=== PATIENT | female | born 1965 | race Caucasian/White ===

== ENCOUNTER 2019-08-04 14:20 | Outpatient (CLI) | payer BC, SELFPAY ==
--- NOTE | 2019-08-04 14:32 | US_ITS ---
WS: [id number] Abdomen ultrasound, 08/04/2019 Clinical Data: juandice Comparison: CT chest abdomen and pelvis, 05/09/2017. Findings: The pancreas shows no cyst, pseudocyst or evidence of pancreatitis although it is not well seen.. The liver shows fatty infiltration. There is a echogenic region in the lobe of the liver measuring 3. 77 x 4.14 x 4.42 cm. The border is not well-defined and seems to blend with the adjacent liver. The gallbladder has been removed. The right kidney is 5.24 x 5.84 x 11.91 cm. No cysts, masses or hydronephrosis is seen. The left kidney is 4.28 x 5.07 x 10.87 cm. No cysts, masses or hydronephrosis is seen. The abdominal aorta is not dilated and the inferior vena cava has normal flow. No vascular abnormalit ies are seen. The spleen measures 5.77 x 7.08 x 10.53 cm and there are no intrasplenic masses are capsular abnormal ities. US/US abdomen complete* [id number] Impression: 1. There is an echogenic region in the right lobe of the liver which correspond s to the low-density lesion seen on the CT chest abdomen pelvis [address] abdomen and pelvis with IV contrast. This lesion could represent a metas tatic lesion. 2. Absent gallbladder.
[2019-08-04 16:07] LABS: Basophils # 0.1 10^3/uL (0.0-0.1); Basophils % 0.6 %; Eosinophils # 0.3 10^3/uL (0.0-0.8); Eosinophils % 2.9 %; Hematocrit 39.1 % (37.0-47.0); Hemoglobin 12.5 g/dL (11.5-15.3); Lymphocytes # 1.4 10^3/uL (0.8-4.8); Lymphocytes % 15.8 %; Mean Corpuscular Hemoglobin 25.7 pg (28.0-34.0); Mean Corpuscular Volume 80.3 fL (81-99); Monocytes # 0.5 10^3/uL (0.2-0.9); Monocytes % 5.4 %; Neutrophils # 6.3 10^3/uL (1.8-7.7); Neutrophils % 74.1 %; Nucleated Red Blood Cells % 0 %; Platelet Count 346 10^3/cmm (130-400); Red Blood Count 4.87 10^6/uL (4.1-5.3); Red Cell Distribution Width 17.9 % (12.1-15.1); White Blood Count 8.6 10^3/uL (4.0-10.0)
[2019-08-04 16:16] LABS: INR 0.93 (0.8-1.2)
[2019-08-04 16:30] LABS: Alanine Aminotransferase 369 U/L (0-33); Albumin Level 3.5 g/dL (3.5-5.2); Alkaline Phosphatase 667 IU/L (35-105); Anion Gap 17.7 (5-19); Aspartate Amino Transferase 263 U/L (0-32); Blood Urea Nitrogen 10 mg/dL (6-20); Calcium 10.2 mg/dL (8.5-10.5); Carbon Dioxide 25 mmol/L (22-29); Chloride 97 mmol/L (98-107); Chol HDL Ratio 24.75 mg/dL (0.0-4.40); Cholesterol 495 mg/dL (0-200); Glomerular Filtration Rate 128.6 mL/min (90-130); Glucose 138 mg/dL (65-115); HDL Cholesterol 20 mg/dL (60-100); LDL Cholesterol Calculated 434 mg/dL (50-129); Potassium 3.7 mmol/L (3.5-5.1); Sodium 136 mmol/L (136-145); Thyroid Stimulating Hormone 13.02 uIU/mL (0.27-4.20); Total Protein 8.5 g/dL (6.6-8.7); Triglycerides 207 mg/dL (0-150)
[2019-08-04 22:10] LABS: Tumor Marker Alpha Fetoprotein 5.1 ng/mL (0-8.3)
== END 2019-08-04 14:21 | disposition home or self-care (01) ==
LOC: RAD 14:26
PROVIDERS: Family Provider Nurse Practitioner Family; PCP Nurse Practitioner Family; Visit Provider Nurse Practitioner Family
DX: R17 Unspecified jaundice (principal)
CPT/HCPCS: 76700; 80053; 80061; 82105; 84443; 85025; 85610

== ENCOUNTER → 2019-08-05 11:22 | Outpatient (BNVA) | payer BC, SELFPAY | PROVIDERS: Family Provider Nurse Practitioner Family; PCP Nurse Practitioner Family; Visit Provider Nurse Practitioner Family | DX: R17 Unspecified jaundice (principal); E03.9 Hypothyroidism, unspecified; Z85.05 Personal history of malignant neoplasm of liver | CPT/HCPCS: 36415; 81001; 82607; 82728; 83540; 83550; 86803 ==

== ENCOUNTER 2019-08-06 12:46 | Emergency (ER) | payer BC, SELFPAY ==
[2019-08-06 12:52] VITALS: BP 164/112; PULSE 93; RESP 16; TEMP 36.8; O2SAT 97; BMI 31.8
--- NOTE | 2019-08-06 13:16 | CT_ITS ---
WS: [id number] CT ABDOMEN AND PELVIS WITH CONTRAST HISTORY: elevate LFTs, jaundice; hx liver/colon CA TECHNIQUE: Imaging performed of the abdomen and pelvis with IV contrast. Single phase imaging of the abdomen. Coronal and sagittal reformats are submitted. All CT scans at [facility] use at least one of these dose optimization techniques: automated exposure control; mA and/or kV adjustment per patient size (includes targeted exams where dose is matched to clinical indication); or iterativ e reconstruction. IV CONTRAST: Omnipaque 300; 95 mL IV. Oral contrast: No DLP: 1226.04 mGy.cm COMPARISON: 05/09/2017 and 08/04/2019 Lower thorax: Lung bases are clear. Heart is normal size. Small hiatal hernia. Liver/biliary system: Intrahepatic bile duct dilatation. Common bile duct measures 11 mm at the pancr eatic head. Mass with predominantly decreased density in the inferior RIGHT lobe of liver with variab le echogenicity present in this mass measures 4.5 x by 4.1 cm and is causing bulging of the contour o f the liver. There is fluid surrounding the mass and extending along the capsule of the liver and sof t tissue thickening. There is an additional hypoechoic area measuring 8 mm in the medial RIGHT lobe o f the liver. Gallbladder: Prior cholecystectomy. Pancreas: Pancreas is normal size. There is a new soft tissue mass measuring 2.6 x 1.6 cm posterior t o the pancreatic head and anterior to the IVC. Spleen: Normal. Adrenal glands: Normal. Right kidney: Normal. Left kidney: Normal. Aorta: Normal. New lymph node anterior to the IVC is rounded measuring 1.0 cm. Free fluid: None. GI tract: Row of anastomotic sutures in the RIGHT abdomen. At the anastomotic sutures there is fecal localization of the intraluminal contents. I suspect is probably at least a partial obstruction near the anastomotic suture site. Additional rows sutures at the rectum. Abdominal wall: Unremarkable abdominal wall. No hernia. Pelvis: No free fluid. RIGHT obturator lymph node was not present in 2016 and measures 12 mm in short axis diameter. There are additional lymph nodes posterior to the RIGHT iliac vein. Bones: No osteoblastic or osteolytic disease. Notified LUCIE Askew at 08/06/2019 2:[address]/CT abdomen pelvis w con* [id number] IMPRESSION: 1. Low-attenuation but variable density mass in the inferior RIGHT lobe of the liver measures 4.5 x 4.1 cm. Mass extends through the liver capsule with adjac ent perihepatic fluid. This may be metastatic lesion or bleeding from a recent ly biopsied site or abscess. 2. New intrahepatic and extrahepatic bile duct dilatation. 3. New metastatic deposits and/or lymph nodes. Largest deposit posterior to th e pancreatic head measures 2.6 x 1.6 cm. Additional new aortocaval and RIGHT p elvic lymph nodes. 4. Surgical anastomotic site in the RIGHT abdomen. Partial obstruction suspect ed at the anastomotic site. 5. Prior cholecystectomy.
--- NOTE | 2019-08-06 13:17 | ED_ITS ---
Documented by User: LUCIE Askew 08/06/19 16:05 HPI - Abdominal Pain General: Chief Complaint: Abdominal Pain Stated Complaint: GERALD Time Seen by Provider: 08/06/19 13:02 Source: patient Mode of arrival: ambulatory Limitations: no limitations History of Present Illness: HPI narrative: Patient is a 54-year-old female who presents to ED today for complaints of jaundice over the past few days. Patient has a history of colon cancer with metastasis to her liver that was diagnosed in 2018. She was subsequently treated at the [facility] in [place] and then care transferred to a surgeon and oncologist in [place]. Patient states she has had several colon resections/ileostomy/reversal and had a mass on her liver removed. Patient was seen by her PCP 2 days ago and had outpatient labs and an ultrasound performed. Ultrasound of her abdomen showed a nodule on her liver- radiologist recommended CT with contrast for further evaluation. Patient tells me over the past couple of days she has noticed yellowing skin, yellowing eyes, dark urine, pale stools, and itchy skin. She denies abdominal pain. Has some mild nausea without vomiting. No fevers. MD elicited complaint: abdominal pain Pertinent past history: other (colon/liver CA) Onset (ago): day(s) Associated Symptoms: Reports change in stool character and nausea; Denies chills, constipation, diarrhea, dysuria, fever(s), hematochezia, hematemesis, syncope and vomiting Review of Systems Const: Denies: fever, chills, body aches, fatigue or malaise Eyes: Reports: yellow eyes; Denies: change in vision or blurry vision ENMT: Denies: throat pain, enlarged tonsils or painful swallowing Card: Denies: chest pain, palpitations, irregular heart rhythm, edema, swelling of feet/ankles, lightheadedness, syncope, pre-syncope, shortness of breath on exertion or shortness of breath when lying down Resp: Denies: shortness of breath, productive cough, coughing up blood or chest congestion GI: Reports: nausea, change in stool character and white/light colored stool; Denies: abdominal pain, vomiting, vomiting blood, feeling full early, diarrhea, constipation, painful bowel movements, rectal swelling, blood in stool, mucus in stool or fatty stool : Reports: other (dark urine); Denies: flank pain, difficulty urinating, painful urination, urinary frequency, urinary urgency or urinary hesitancy Musc: Denies: neck pain or back pain Skin/Breast: Reports: itching Neuro: Denies: headache, numbness in extremities, weakness in extremities or c hanges in sensation PFSH ED PFSH: Medical History (Updated 08/06/19 @ 14:58 by LUCIE Askew) Colon cancer metastasized to liver Essential hypertension Head injury due to trauma History of liver cancer History of colon cancer that mets to liver. January 2019 patient has abdominal wash procedure with removal of liver lesion in [place], [place] Hypothyroid Surgical History (Updated 08/05/19 @ 11:18 by MARII Light) S/P cholecystectomy Social History Smoking and tobacco status: never smoked Second hand smoke exposure: No Smoking risk assessment/counseling performed?: No Alcohol intake: never Desire information about alcohol rehabilitation?: No Counseling given: No Desire information about substance/drug rehabilitation?: No Counseling given: No Physical Exam Const: COMMON NORMALS: no apparent distress, oriented x3, no limitations, alert and well nourished HENMT: COMMON NORMALS: normocephalic and head/scalp atraumatic HEAD & SCALP: normocephalic and atraumatic Eye: COMMON NORMALS: PERRL VISUAL ACUITY: Yes acuity normal PERIORBITAL: periorbital findings normal EYELID: eyelids normal SCLERA: sclera abnormal (scleral icterus ) PUPIL: Yes PERRL Neck/C-Spine: COMMON NORMALS: full ROM, no lymphadenopathy and no meningeal signs Resp: COMMON NORMALS: normal respiratory effort and clear to auscultation bilaterally AUSCULTATION: clear to auscultation bilaterally Cardio: COMMON NORMALS: regular rate and regular rhythm RATE: regular rate RHYTHM: regular rhythm GI: COMMON NORMALS: normal to inspection, nondistended, normoactive bowel thierno nds, soft to palpation, non-tender and no masses PALPATION: Yes soft and Yes hepatomegaly : COMMON NORMALS: Yes no CVA tenderness BLADDER/KIDNEY EXAM: Yes no CVA tenderness Back/Pelvis: COMMON NORMALS: no CVA tenderness Extremity: COMMON NORMALS: normal to inspection Neuro: COMMON NORMALS: oriented x3 SENSORIUM/ORIENTATION: Yes alert MENINGEAL SIGNS: Yes no meningeal signs Skin: GENERAL SKIN EXAM: jaundice Course ED course: Spoke to [facility] transfer [facility] and they do not have any [facility] beds to make her a direct admit so she will have to go ED to ED. Dr. Landon also saw patient and agrees with plan for transfer and work up here from the ED. Consultations: Consultation #1: Dr. Palmer ED; accepts patient Vital Signs: Vital signs: Vital Signs Temperature 98.2 F 08/06/19 12:52 Pulse Rate 78 08/06/19 16:33 Respiratory Rate 18 08/06/19 16:33 Blood Pressure 161/98 08/06/19 16:33 Pulse Oximetry 96 08/06/19 16:33 MDM - Abdominal Pain Lab Data: Labs: Lab Results 08/06/19 08/06/19 08/06/19 Range/Units 13:25 13:25 13:25 WBC 9.9 (4.0-10.0) 10^3/ uL RBC 4.34 (4.1-5.3) 10^6/u L Hgb 11.2 L (11.5-15.3) g/dL Hct 36.2 L (37.0-47.0) % MCV 83.4 (81-99) fL MCH 25.8 L (28.0-34.0) pg MCHC 30.9 (30.0-36.0) g/dL RDW 19.1 H (12.1-15.1) % Plt Count 312 (130-400) 10^3/c mm MPV 10.4 (7.4-10.4) fL Neut % (Auto) 76.1 % Lymph % (Auto) 14.3 % [place] % (Auto) 4.5 % Eos % (Auto) 2.7 % Baso % (Auto) 0.8 % Neut # (Auto) 7.5 (1.8-7.7) 10^3/u L Lymph # (Auto) 1.4 (0.8-4.8) 10^3/u L [place] # (Auto) 0.5 (0.2-0.9) 10^3/u L Eos # (Auto) 0.3 (0.0-0.8) 10^3/u L Baso # (Auto) 0.1 (0.0-0.1) 10^3/u L Nucleated RBC % (a uto) 0 % Nucleated RBCs # 0.0 /100WBC Sodium 133 L (136-145) mmol/L Potassium 3.4 L (3.5-5.1) mmol/L Chloride 97 L (98-107) mmol/L Carbon Dioxide 21 L (22-29) mmol/L Anion Gap 18.4 (5-19) BUN 9 (6-20) mg/dL Creatinine 0.4 L (0.5-0.9) mg/dL GFR Calculation 166.3 H (90-130) mL/min Glucose 163 H (65-115) mg/dL Calcium 9.7 (8.5-10.5) mg/dL Total Bilirubin 7.8 H* 7.8 H* (0.15-1.2) mg/dL Direct Bilirubin 6.20 H (0.00-0.30) mg/d L Indirect Bilirubin 1.60 AST 312 H (0-32) U/L ALT 416 H (0-33) U/L Alkaline Phosphata se 722 H (35-105) IU/L Total Protein 7.8 (6.6-8.7) g/dL Albumin 3.2 L (3.5-5.2) g/dL Globulin 4.6 (1.3-4.6) g/dL Lipase 20 (13-60) U/L Urine Color (Yellow) Urine Appearance (CLEAR) Urine pH (5-7) Ur Specific Gravit y (1.005-1.030) Urine Protein (Negative) Urine Glucose (UA) (Normal) Urine Ketones (Negative) Urine Occult Blood (Negative) Urine Nitrate (Negative) Urine Bilirubin (NEGATIVE) Urine Urobilinogen (Negative) mg/dL Ur Leukocyte Elisa ase (Negative) Urine RBC (0-2) /hpf Urine WBC (0-5) /hpf Ur Squamous Epith Cells (0-5) Urine Bacteria (NONE) Acetaminophen < 5.0 L (10-30) ug/mL Hepatitis A IgM Ab (Nonreactive) Hep Bs Antigen (Nonreactive) Hep B Core IgM Ab (Nonreactive) Hepatitis C Antibo dy (Nonreactive) 08/06/19 08/06/19 Range/Units 13:25 14:35 WBC (4.0-10.0) 10^3/ uL RBC (4.1-5.3) 10^6/u L Hgb (11.5-15.3) g/dL Hct (37.0-47.0) % MCV (81-99) fL MCH (28.0-34.0) pg MCHC (30.0-36.0) g/dL RDW (12.1-15.1) % Plt Count (130-400) 10^3/c mm MPV (7.4-10.4) fL Neut % (Auto) % Lymph % (Auto) % [place] % (Auto) % Eos % (Auto) % Baso % (Auto) % Neut # (Auto) (1.8-7.7) 10^3/u L Lymph # (Auto) (0.8-4.8) 10^3/u L [place] # (Auto) (0.2-0.9) 10^3/u L Eos # (Auto) (0.0-0.8) 10^3/u L Baso # (Auto) (0.0-0.1) 10^3/u L Nucleated RBC % (a uto) % Nucleated RBCs # /100WBC Sodium (136-145) mmol/L Potassium (3.5-5.1) mmol/L Chloride (98-107) mmol/L Carbon Dioxide (22-29) mmol/L Anion Gap (5-19) BUN (6-20) mg/dL Creatinine (0.5-0.9) mg/dL GFR Calculation (90-130) mL/min Glucose (65-115) mg/dL Calcium (8.5-10.5) mg/dL Total Bilirubin (0.15-1.2) mg/dL Direct Bilirubin (0.00-0.30) mg/d L Indirect Bilirubin AST (0-32) U/L ALT (0-33) U/L Alkaline Phosphata se (35-105) IU/L Total Protein (6.6-8.7) g/dL Albumin (3.5-5.2) g/dL Globulin (1.3-4.6) g/dL Lipase (13-60) U/L Urine Color Yellow (Yellow) Urine Appearance Clear (CLEAR) Urine pH 5 (5-7) Ur Specific Gravit y 1.005 (1.005-1.030) Urine Protein Trace (Negative) Urine Glucose (UA) Trace H (Normal) Urine Ketones Negative (Negative) Urine Occult Blood Neg (Negative) Urine Nitrate Negative (Negative) Urine Bilirubin 2+ H (NEGATIVE) Urine Urobilinogen 1 H (Negative) mg/dL Ur Leukocyte Elisa ase Negative (Negative) Urine RBC None (0-2) /hpf Urine WBC 0-4 H (0-5) /hpf Ur Squamous Epith Cells 0-4 H (0-5) Urine Bacteria Trace (NONE) Acetaminophen (10-30) ug/mL Hepatitis A IgM Ab Non-reactive (Nonreactive) Hep Bs Antigen Non-reactive (Nonreactive) Hep B Core IgM Ab Non-reactive (Nonreactive) Hepatitis C Antibo dy Non-reactive (Nonreactive) Discharge Plan Discharge Patient Disposition: Xfer Other Clinical Impression: Jaundice, Biliary obstruction, Colon carcinoma metastatic to liver Condition: Stable Referrals: Katty Bess FNP [Primary Care Provider] - Discharge Date/Time: 08/06/19 16:33 Coding Level of Care Code ED Stress Analyst for Chg Fwd Exam Problem Focused Documented by User: Ana Maria Landon MD 08/06/19 18:27 HPI - Abdominal Pain General: Chief Complaint: Abdominal Pain Stated Complaint: JUANDICE Time Seen by Provider: 08/06/19 13:02 [facility] ED PFS: Medical History (Updated 08/06/19 @ 14:58 by LUCIE Askew) Colon cancer metastasized to liver Essential hypertension Head injury due to trauma History of liver cancer History of colon cancer that mets to liver. January 2019 patient has abdominal wash procedure with removal of liver lesion in [place], [place] Hypothyroid Surgical History (Updated 08/05/19 @ 11:18 by MARII Light) S/P cholecystectomy Social History Smoking and tobacco status: never smoked Second hand smoke exposure: No Smoking risk assessment/counseling performed?: No Alcohol intake: never Desire information about alcohol rehabilitation?: No Counseling given: No Desire information about substance/drug rehabilitation?: No Counseling given: No Course Vital Signs: Vital signs: Vital Signs Temperature 98.2 F 08/06/19 12:52 Pulse Rate 78 08/06/19 16:33 Respiratory Rate 18 08/06/19 16:33 Blood Pressure 161/98 08/06/19 16:33 Pulse Oximetry 96 08/06/19 16:33 MDM - Abdominal Pain Lab Data: Labs: Lab Results 08/06/19 08/06/19 08/06/19 Range/Units 13:25 13:25 13:25 WBC 9.9 (4.0-10.0) 10^3/ uL RBC 4.34 (4.1-5.3) 10^6/u L Hgb 11.2 L (11.5-15.3) g/dL Hct 36.2 L (37.0-47.0) % MCV 83.4 (81-99) fL MCH 25.8 L (28.0-34.0) pg MCHC 30.9 (30.0-36.0) g/dL RDW 19.1 H (12.1-15.1) % Plt Count 312 (130-400) 10^3/c mm MPV 10.4 (7.4-10.4) fL Neut % (Auto) 76.1 % Lymph % (Auto) 14.3 % [place] % (Auto) 4.5 % Eos % (Auto) 2.7 % Baso % (Auto) 0.8 % Neut # (Auto) 7.5 (1.8-7.7) 10^3/u L Lymph # (Auto) 1.4 (0.8-4.8) 10^3/u L [place] # (Auto) 0.5 (0.2-0.9) 10^3/u L Eos # (Auto) 0.3 (0.0-0.8) 10^3/u L Baso # (Auto) 0.1 (0.0-0.1) 10^3/u L Nucleated RBC % (a uto) 0 % Nucleated RBCs # 0.0 /100WBC Sodium 133 L (136-145) mmol/L Potassium 3.4 L (3.5-5.1) mmol/L Chloride 97 L (98-107) mmol/L Carbon Dioxide 21 L (22-29) mmol/L Anion Gap 18.4 (5-19) BUN 9 (6-20) mg/dL Creatinine 0.4 L (0.5-0.9) mg/dL GFR Calculation 166.3 H (90-130) mL/min Glucose 163 H (65-115) mg/dL Calcium 9.7 (8.5-10.5) mg/dL Total Bilirubin 7.8 H* 7.8 H* (0.15-1.2) mg/dL Direct Bilirubin 6.20 H (0.00-0.30) mg/d L Indirect Bilirubin 1.60 AST 312 H (0-32) U/L ALT 416 H (0-33) U/L Alkaline Phosphata se 722 H (35-105) IU/L Total Protein 7.8 (6.6-8.7) g/dL Albumin 3.2 L (3.5-5.2) g/dL Globulin 4.6 (1.3-4.6) g/dL Lipase 20 (13-60) U/L Urine Color (Yellow) Urine Appearance (CLEAR) Urine pH (5-7) Ur Specific Gravit y (1.005-1.030) Urine Protein (Negative) Urine Glucose (UA) (Normal) Urine Ketones (Negative) Urine Occult Blood (Negative) Urine Nitrate (Negative) Urine Bilirubin (NEGATIVE) Urine Urobilinogen (Negative) mg/dL Ur Leukocyte Elisa ase (Negative) Urine RBC (0-2) /hpf Urine WBC (0-5) /hpf Ur Squamous Epith Cells (0-5) Urine Bacteria (NONE) Acetaminophen < 5.0 L (10-30) ug/mL Hepatitis A IgM Ab (Nonreactive) Hep Bs Antigen (Nonreactive) Hep B Core IgM Ab (Nonreactive) Hepatitis C Antibo dy (Nonreactive) 08/06/19 08/06/19 Range/Units 13:25 14:35 WBC (4.0-10.0) 10^3/ uL RBC (4.1-5.3) 10^6/u L Hgb (11.5-15.3) g/dL Hct (37.0-47.0) % MCV (81-99) fL MCH (28.0-34.0) pg MCHC (30.0-36.0) g/dL RDW (12.1-15.1) % Plt Count (130-400) 10^3/c mm MPV (7.4-10.4) fL Neut % (Auto) % Lymph % (Auto) % [place] % (Auto) % Eos % (Auto) % Baso % (Auto) % Neut # (Auto) (1.8-7.7) 10^3/u L Lymph # (Auto) (0.8-4.8) 10^3/u L [place] # (Auto) (0.2-0.9) 10^3/u L Eos # (Auto) (0.0-0.8) 10^3/u L Baso # (Auto) (0.0-0.1) 10^3/u L Nucleated RBC % (a uto) % Nucleated RBCs # /100WBC Sodium (136-145) mmol/L Potassium (3.5-5.1) mmol/L Chloride (98-107) mmol/L Carbon Dioxide (22-29) mmol/L Anion Gap (5-19) BUN (6-20) mg/dL Creatinine (0.5-0.9) mg/dL GFR Calculation (90-130) mL/min Glucose (65-115) mg/dL Calcium (8.5-10.5) mg/dL Total Bilirubin (0.15-1.2) mg/dL Direct Bilirubin (0.00-0.30) mg/d L Indirect Bilirubin AST (0-32) U/L ALT (0-33) U/L Alkaline Phosphata se (35-105) IU/L Total Protein (6.6-8.7) g/dL Albumin (3.5-5.2) g/dL Globulin (1.3-4.6) g/dL Lipase (13-60) U/L Urine Color Yellow (Yellow) Urine Appearance Clear (CLEAR) Urine pH 5 (5-7) Ur Specific Gravit y 1.005 (1.005-1.030) Urine Protein Trace (Negative) Urine Glucose (UA) Trace H (Normal) Urine Ketones Negative (Negative) Urine Occult Blood Neg (Negative) Urine Nitrate Negative (Negative) Urine Bilirubin 2+ H (NEGATIVE) Urine Urobilinogen 1 H (Negative) mg/dL Ur Leukocyte Elisa ase Negative (Negative) Urine RBC None (0-2) /hpf Urine WBC 0-4 H (0-5) /hpf Ur Squamous Epith Cells 0-4 H (0-5) Urine Bacteria Trace (NONE) Acetaminophen (10-30) ug/mL Hepatitis A IgM Ab Non-reactive (Nonreactive) Hep Bs Antigen Non-reactive (Nonreactive) Hep B Core IgM Ab Non-reactive (Nonreactive) Hepatitis C Antibo dy Non-reactive (Nonreactive) Discharge Plan Discharge Patient Disposition: Xfer Other Clinical Impression: Jaundice, Biliary obstruction, Colon carcinoma metastatic to liver Condition: Stable Referrals: Katty Bess, [employer] OPERATOR [Primary Care Provider] - Discharge Date/Time: 08/06/19 16:33 Coding Level of Care Code ED Stress Analyst for Chg Fwd Exam Problem Focused
[2019-08-06 13:34] LABS: Basophils # 0.1 10^3/uL (0.0-0.1); Basophils % 0.8 %; Eosinophils # 0.3 10^3/uL (0.0-0.8); Eosinophils % 2.7 %; Hematocrit 36.2 % (37.0-47.0); Hemoglobin 11.2 g/dL (11.5-15.3); Lymphocytes # 1.4 10^3/uL (0.8-4.8); Lymphocytes % 14.3 %; Mean Corpuscular HGB Conc 30.9 g/dL (30.0-36.0); Mean Corpuscular Hemoglobin 25.8 pg (28.0-34.0); Mean Corpuscular Volume 83.4 fL (81-99); Mean Platelet Volume 10.4 fL (7.4-10.4); Monocytes # 0.5 10^3/uL (0.2-0.9); Monocytes % 4.5 %; Neutrophils # 7.5 10^3/uL (1.8-7.7); Neutrophils % 76.1 %; Nucleated Red Blood Cells % 0 %; Platelet Count 312 10^3/cmm (130-400); Red Blood Count 4.34 10^6/uL (4.1-5.3); Red Cell Distribution Width 19.1 % (12.1-15.1); White Blood Count 9.9 10^3/uL (4.0-10.0)
[2019-08-06] MEDS: iohexol 300 mg/mL 100 mL Btl IV (13:52)
[2019-08-06 13:53] LABS: Alanine Aminotransferase 416 U/L (0-33); Albumin Level 3.2 g/dL (3.5-5.2); Alkaline Phosphatase 722 IU/L (35-105); Anion Gap 18.4 (5-19); Aspartate Amino Transferase 312 U/L (0-32); Blood Urea Nitrogen 9 mg/dL (6-20); Calcium 9.7 mg/dL (8.5-10.5); Carbon Dioxide 21 mmol/L (22-29); Chloride 97 mmol/L (98-107); Globulin 4.6 g/dL (1.3-4.6); Glomerular Filtration Rate 166.3 mL/min (90-130); Glucose 163 mg/dL (65-115); Lipase 20 U/L (13-60); Potassium 3.4 mmol/L (3.5-5.1); Sodium 133 mmol/L (136-145); Total Protein 7.8 g/dL (6.6-8.7)
[2019-08-06 14:04] LABS: Acetaminophen < 5.0 ug/mL (10-30); Total Bilirubin 7.8 mg/dL (0.15-1.2)
[2019-08-06 14:05] LABS: Total Bilirubin 7.8 mg/dL (0.15-1.2)
[2019-08-06 14:06] LABS: Hepatitis A Antibody IgM. Non-Reactive (Nonreactive); Hepatitis B Core IgM Non-Reactive (Nonreactive); Hepatitis B Surface Antigen. Non-Reactive (Nonreactive); Hepatitis C Virus Antibody Non-Reactive (Nonreactive)
--- NOTE | 2019-08-06 14:48 | ED_ITS ---
HPI - Abdominal Pain General: Chief Complaint: Abdominal Pain Stated Complaint: NAZARIOANDICE Time Seen by Provider: 08/06/19 13:02 Source: patient Mode of arrival: ambulatory Limitations: no limitations History of Present Illness: MD elicited complaint: abdominal pain [facility] ED PFSH: Medical History (Updated 08/05/19 @ 13:23 by MARII Light) Colon cancer metastasized to liver Essential hypertension Head injury due to trauma History of liver cancer History of colon cancer that mets to liver. January 2019 patient has abdominal wash procedure with removal of liver lesion in [place], [place] Hypothyroid Surgical History (Updated 08/05/19 @ 11:18 by MARII Light) S/P cholecystectomy Social History Smoking and tobacco status: never smoked Second hand smoke exposure: No Smoking risk assessment/counseling performed?: No Alcohol intake: never Desire information about alcohol rehabilitation?: No Counseling given: No Desire information about substance/drug rehabilitation?: No Counseling given: No Course Consultations: Consultation #1: I saw this patient with LUCIE Taylor. The patient has a history of colon cancer treated here, [facility] in [place] and in [place]. She stopped treatments last year, but it isn't clear if that was due to losing insurance or she was told that the cancer was gone. She was sent to the ED today for jaundice, elevated LFTs, and a new mass on an US done a few days ago. On evaluation today she denies pain, vomiting, fever. CT had been ordered as outpatient, but couldn't be done until next week. Today her CT done in the ED showed mets including one in the pancreatic head that is likely compressing the biliary system. This was discussed with the patient and she prefers to go back to [facility] where she has been treated before. Claudia arranged for the transfer to [facility] where she will have to wait in the ED. Vital Signs: Vital signs: Vital Signs Temperature 98.2 F 08/06/19 12:52 Pulse Rate 93 08/06/19 12:52 Respiratory Rate 16 08/06/19 12:52 Blood Pressure 164/112 08/06/19 12:52 Pulse Oximetry 97 08/06/19 12:52 MDM - Abdominal Pain Lab Data: Labs: Lab Results 08/06/19 08/06/1908/06/20 Range/Units 13:25 13:25 13:25 WBC 9.9 (4.0-10.0) 10^3/ uL RBC 4.34 (4.1-5.3) 10^6/u L Hgb 11.2 L (11.5-15.3) g/dL Hct 36.2 L (37.0-47.0) % MCV 83.4 (81-99) fL MCH 25.8 L (28.0-34.0) pg MCHC 30.9 (30.0-36.0) g/dL RDW 19.1 H (12.1-15.1) % Plt Count 312 (130-400) 10^3/c mm MPV 10.4 (7.4-10.4) fL Neut % (Auto) 76.1 % Lymph % (Auto) 14.3 % [place] % (Auto) 4.5 % Eos % (Auto) 2.7 % Baso % (Auto) 0.8 % Neut # (Auto) 7.5 (1.8-7.7) 10^3/u L Lymph # (Auto) 1.4 (0.8-4.8) 10^3/u L [place] # (Auto) 0.5 (0.2-0.9) 10^3/u L Eos # (Auto) 0.3 (0.0-0.8) 10^3/u L Baso # (Auto) 0.1 (0.0-0.1) 10^3/u L Nucleated RBC % (a uto) 0 % Nucleated RBCs # 0.0 /100WBC Sodium 133 L (136-145) mmol/L Potassium 3.4 L (3.5-5.1) mmol/L Chloride 97 L (98-107) mmol/L Carbon Dioxide 21 L (22-29) mmol/L Anion Gap 18.4 (5-19) BUN 9 (6-20) mg/dL Creatinine 0.4 L (0.5-0.9) mg/dL GFR Calculation 166.3 H (90-130) mL/min Glucose 163 H (65-115) mg/dL Calcium 9.7 (8.5-10.5) mg/dL Total Bilirubin 7.8 H* 7.8 H* (0.15-1.2) mg/dL Direct Bilirubin 6.20 H (0.00-0.30) mg/d L Indirect Bilirubin 1.60 AST 312 H (0-32) U/L ALT 416 H (0-33) U/L Alkaline Phosphata se 722 H (35-105) IU/L Total Protein 7.8 (6.6-8.7) g/dL Albumin 3.2 L (3.5-5.2) g/dL Globulin 4.6 (1.3-4.6) g/dL Lipase 20 (13-60) U/L Acetaminophen < 5.0 L (10-30) ug/mL Hepatitis A IgM Ab (Nonreactive) Hep Bs Antigen (Nonreactive) Hep B Core IgM Ab (Nonreactive) Hepatitis C Antibo dy (Nonreactive) 08/06/19 Range/Units 13:25 WBC (4.0-10.0) 10^3/ uL RBC (4.1-5.3) 10^6/u L Hgb (11.5-15.3) g/dL Hct (37.0-47.0) % MCV (81-99) fL MCH (28.0-34.0) pg MCHC (30.0-36.0) g/dL RDW (12.1-15.1) % Plt Count (130-400) 10^3/c mm MPV (7.4-10.4) fL Neut % (Auto) % Lymph % (Auto) % [place] % (Auto) % Eos % (Auto) % Baso % (Auto) % Neut # (Auto) (1.8-7.7) 10^3/u L Lymph # (Auto) (0.8-4.8) 10^3/u L [place] # (Auto) (0.2-0.9) 10^3/u L Eos # (Auto) (0.0-0.8) 10^3/u L Baso # (Auto) (0.0-0.1) 10^3/u L Nucleated RBC % (a uto) % Nucleated RBCs # /100WBC Sodium (136-145) mmol/L Potassium (3.5-5.1) mmol/L Chloride (98-107) mmol/L Carbon Dioxide (22-29) mmol/L Anion Gap (5-19) BUN (6-20) mg/dL Creatinine (0.5-0.9) mg/dL GFR Calculation (90-130) mL/min Glucose (65-115) mg/dL Calcium (8.5-10.5) mg/dL Total Bilirubin (0.15-1.2) mg/dL Direct Bilirubin (0.00-0.30) mg/d L Indirect Bilirubin AST (0-32) U/L ALT (0-33) U/L Alkaline Phosphata se (35-105) IU/L Total Protein (6.6-8.7) g/dL Albumin (3.5-5.2) g/dL Globulin (1.3-4.6) g/dL Lipase (13-60) U/L Acetaminophen (10-30) ug/mL Hepatitis A IgM Ab Non-reactive (Nonreactive) Hep Bs Antigen Non-reactive (Nonreactive) Hep B Core IgM Ab Non-reactive (Nonreactive) Hepatitis C Antibo dy Non-reactive (Nonreactive) Discharge Plan Discharge Prescriptions: No Action levothyroxine 137 mcg capsule 137 mcg PO DAILY 30 Days Qty: 30 RF: 1 guanfacine 2 mg tablet extended release 24 hr PO RF: 0 betaxolol 10 mg tablet PO RF: 0 ergocalciferol (vitamin D2) [Vitamin D2] 1,250 mcg (50,000 unit) capsule 1,250 mcg PO .weekly Qty: 4 RF: 2 Coding Level of Care Code ED Certified Residential Medication Aide for Chg Bello
[2019-08-06 14:50] LABS: Add Urine Microscopic? YES; Bilirubin Urine 2+ (NEGATIVE); Blood Urine Neg (Negative); Glucose Urine UA Trace (Normal); Ketones Urine Negative (Negative); Leukocyte Esterase Urine Negative (Negative); Nitrate Urine Negative (Negative); Protein Urine Trace (Negative); Specific Gravity, Urine 1.005 (1.005-1.030); Urine Appearance Clear (CLEAR); Urine Color Yellow (Yellow); Urobilinogen Urine 1 mg/dL (Negative); pH Urine 5 (5-7)
[2019-08-06 14:58] LABS: Bacteria Urine TRACE; Squamous Epithelial Cell Urine 0-4 (0-5); WBC Urine 0-4 /hpf (0-5)
[2019-08-06 14:59] LABS: Add Urine Culture? No
[2019-08-06 16:33] VITALS: BP 161/98; PULSE 78; RESP 18; O2SAT 96
== END 2019-08-06 16:33 | disposition other institution (70) ==
PROVIDERS: Physician Assistant; Emergency Provider Emergency Medicine; Family Provider Nurse Practitioner Family; PCP Nurse Practitioner Family
DX: K83.1 Obstruction of bile duct (principal); C18.9 Malignant neoplasm of colon, unspecified; C78.7 Secondary malignant neoplasm of liver and intrahepatic bile duct; I10 Essential (primary) hypertension
CPT/HCPCS: 36415; 74177; 80053; 80074; 80307; 81001; 82247; 82248; 83690; 85025; 99282; 99285; Q9967

== ENCOUNTER 2019-08-20 10:51 | Emergency (ER) | payer BC, SELFPAY ==
[2019-08-20 11:14] VITALS: BP 149/85; PULSE 125; RESP 18; TEMP 36.9; O2SAT 98; BMI 35.7
--- NOTE | 2019-08-20 11:19 | ED_ITS ---
Entered by Angeles Burrell, acting as scribe for Trung Matos MD HPI - Abdominal Pain General: Chief Complaint: Abdominal Pain Stated Complaint: PANCREATIC DRAIN CLOTTED Time Seen by Provider: 08/20/19 11:18 Source: patient Mode of arrival: ambulatory Limitations: no limitations History of Present Illness: HPI narrative: 54 yo Female presents to ED with complaint of abdominal drain not draining properly. Pt states that she had 2 stents placed between her pancreas and her liver. Pt states that she has a history of colorectal cancer. Pt states that the doctor believes there is a mass between her pancreas and her liver. Pt states that her doctor thinks that there is something stopping up the drain. Pt's caregiver states that her drain has been gurgling. Pt states that Dr. Rodriguez is her liver doctor and Dr. Grififn did her CT guided procedure at [facility] in [place]. Pt states that her bag was changed today and there has been no drainage into the bag but there is blood leaking around the drain. MD elicited complaint: other (abdominal drain not draining) Onset (ago): hour(s) Pain Consistency: constant Location: RUQ Radiation: none Migration to: no migration Exacerbating factors: nothing Relieving factors: nothing Context: recent surgery/procedure Associated Symptoms: Reports other (abdominal drain not draining); Denies chills, diarrhea, dysuria, fever(s), nausea and vomiting Review of Systems Const: Denies: fever, chills, body aches or change in appetite Eyes: Denies: blurry vision or eye discomfort ENMT: Denies: throat pain or dental pain Card: Denies: chest pain Resp: Denies: shortness of breath GI: Reports: other (abdominal drain not draining); Denies: abdominal pain, nausea, vomiting or diarrhea : Denies: painful urination Musc: Denies: neck pain or back pain Skin/Breast: Denies: rash Neuro: Denies: headache Psych: Denies: depression Gucci/Lymph: Denies: easy bruising All/Imm: Denies: hives PFS ED PFSH: Medical History Colon cancer metastasized to liver Essential hypertension Head injury due to trauma History of liver cancer History of colon cancer that mets to liver. January 2019 patient has abdominal wash procedure with removal of liver lesion in [place], [place] Hypothyroid Surgical History S/P cholecystectomy Social History Smoking and tobacco status: never smoked Second hand smoke exposure: No Smoking risk assessment/counseling performed?: No Alcohol intake: never Desire information about alcohol rehabilitation?: No Counseling given: No Desire information about substance/drug rehabilitation?: No Counseling given: No Physical Exam Const: COMMON NORMALS: no apparent distress, oriented x3 and healthy appearing HENMT: COMMON NORMALS: normocephalic and head/scalp atraumatic HEAD & SCALP: normocephalic and atraumatic Eye: COMMON NORMALS: PERRL and EOMs intact bilaterally PUPIL: Yes PERRL Neck/C-Spine: COMMON NORMALS: full ROM and supple Chest: COMMONS NORMALS: inspection of chest normal and palpation of chest normal Resp: COMMON NORMALS: normal respiratory effort, no retractions, no use of accessory muscles and clear to auscultation bilaterally AUSCULTATION: clear to auscultation bilaterally Cardio: COMMON NORMALS: regular rate, regular rhythm and no murmurs RATE: regular rate RHYTHM: regular rhythm GI: COMMON NORMALS: normal to inspection, nondistended, normoactive bowel sounds, soft to palpation, non-tender and no masses INSPECTION: Yes other (abdominal drain-right side abdomen) PALPATION: Yes soft Extremity: COMMON NORMALS: normal to inspection and full ROM Neuro: COMMON NORMALS: oriented x3, moves all extremities and no focal motor deficits Psych: COMMON NORMALS: mental status grossly normal, thought process normal and cooperative THOUGHT PROCESS: normal thought process Skin: COMMON NORMALS: no rashes or lesions noted and no wounds GENERAL SKIN EXAM: no rashes or lesions noted Course Consultations: Consultation #1: Dr. Rodriguez at [facility] in [place], [place]. Call placed to transfer center. Awaiting call back from Dr. Rodriguez. Time: 13:08 Vital Signs: Vital signs: Vital Signs Temperature 98.4 F 08/20/19 11:14 Pulse Rate 106 H 08/20/19 14:45 Respiratory Rate 17 08/20/19 14:45 Blood Pressure 140/82 08/20/19 14:45 Pulse Oximetry 96 08/20/19 14:45 MDM - Abdominal Pain MDM Narrative: Medical decision making narrative: Patient presents here with abdominal pain that is very mild in nature. Patient's main concern was that her drain was no longer draining. CT scan showed liver infarction which was due to her surgery. I did speak to surgeon on-call at [facility] and states that they had emboli lobes of her liver due to bleeding. Patient is well-appearing here and is to follow-up with her surgeon as scheduled next week and return if worsening. Lab Data: Labs: Lab Results 08/20/19 08/20/19 Range/Units 11:56 11:56 WBC 14.2 H (4.0-10.0) 10^3/ uL RBC 3.02 L (4.1-5.3) 10^6/u L Hgb 8.6 L (11.5-15.3) g/dL Hct 28.5 L (37.0-47.0) % MCV 94.4 (81-99) fL MCH 28.5 (28.0-34.0) pg MCHC 30.2 (30.0-36.0) g/dL RDW 18.9 H (12.1-15.1) % Plt Count 338 (130-400) 10^3/c mm MPV 9.5 (7.4-10.4) fL Neut % (Auto) 84.4 % Lymph % (Auto) 6.9 % Redwood % (Auto) 7.1 % Eos % (Auto) 0.4 % Baso % (Auto) 0.1 % Neut # (Auto) 11.9 H (1.8-7.7) 10^3/u L Lymph # (Auto) 1.0 (0.8-4.8) 10^3/u L Redwood # (Auto) 1.0 H (0.2-0.9) 10^3/u L Eos # (Auto) 0.1 (0.0-0.8) 10^3/u L Baso # (Auto) 0.0 (0.0-0.1) 10^3/u L Nucleated RBC % (a uto) 0 % Nucleated RBCs # 0.0 /100WBC Sodium 129 L (136-145) mmol/L Potassium 4.2 (3.5-5.1) mmol/L Chloride 95 L (98-107) mmol/L Carbon Dioxide 24 (22-29) mmol/L Anion Gap 14.2 (5-19) BUN 7 (6-20) mg/dL Creatinine 0.4 L (0.5-0.9) mg/dL GFR Calculation 166.3 H (90-130) mL/min Glucose 178 H (65-115) mg/dL Calcium 8.9 (8.5-10.5) mg/dL Total Bilirubin 1.7 H (0.15-1.2) mg/dL AST 47 H (0-32) U/L ALT 254 H (0-33) U/L Alkaline Phosphata se 657 H (35-105) IU/L Total Protein 7.1 (6.6-8.7) g/dL Albumin 2.4 L (3.5-5.2) g/dL Globulin 4.7 H (1.3-4.6) g/dL Lipase 120 H (13-60) U/L Imaging Data ^: CT Abd/Pel: Radiologist's impression: [place] [id number] CT Scan Report Signed Patient: Anabella Elliott #: [id number] : 1965Acct#:[id number] Age/Sex: 54 / FADM Date: 08/20/19 Loc: ERRoom/Bed: Attending Dr: Ordering Provider/Ordering MD: Trung Matos MD Date of Service: 08/20/19 Procedure(s): CT abdomen pelvis w con* [id number] Accession Number(s): [id number] Report Number: [id number] WS: [id number] CT ABDOMEN AND PELVIS WITH CONTRAST HISTORY: abd pain TECHNIQUE: Imaging performed of the abdomen and pelvis with IV contrast. Single phase imaging of the abdomen. Coronal and sagittal reformats are submitted. All CT scans at [facility] use at least one of these dose optimization techniques: automated exposure control; mA and/or kV adjustment per patient size (includes targeted exams where dose is matched to clinical indication); or iterative reconstruction. IV CONTRAST: Omnipaque 300; 95 mL IV. Oral contrast: No DLP: 1636.27 mGy.cm COMPARISON: 08/06/2019 Lower thorax: New small RIGHT pleural effusion and RIGHT lower lobe atelectasis. There is a 5 mm nodule at the RIGHT lung base. Heart is normal size. There are small lymph nodes in the anterior lower thorax adjacent to the pericardium. These were present on the prior study. Liver/biliary system: Significant change in appearance of the liver since 08/06/2019. There is a percutaneous drain coiled in the RIGHT lobe of the liver in the area the previously described necrotic or neoplastic mass. There is a large amount of decreased attenuation and nonenhancement involving the very large portion of the RIGHT lobe of the liver. There is air in the biliary system and in the liver parenchyma. LEFT lobe of the liver appears to be enhancing normally. Patient also has a common bile duct stent was placed since the prior study. No enhancement of the RIGHT portal vein. LEFT portal vein is still enhancing. There is mild intrahepatic bile duct dilatation which was also present on this prior study has slightly improved. Gallbladder: Prior cholecystectomy. Pancreas: Duct stent through the pancreas head. No change in the soft tissue adjacent to the pancreatic head. Spleen: Normal. Adrenal glands: Normal. Right kidney: Normal. Left kidney: Normal. Aorta: Normal. Lymphadenopathy: No change in the oral aortocaval and pelvic lymph nodes. Free fluid: Small amount of free fluid in the pelvis. There is a small amount of fluid adjacent to the liver. GI tract: Postsurgical changes and anastomotic sutures in the RIGHT abdomen. There is mild constipation. No obstruction. Abdominal wall: Soft tissue edema and anasarca. Pelvis: Small amount of free fluid in the pelvis. RIGHT pelvic lymph nodes are unchanged as compared to 08/06/2019. Bones: Unremarkable. Notified Trung Matos MD at 08/20/2019 12:[address]/CT abdomen pelvis w con* [id number] IMPRESSION: 1. Significant change in appearance of the liver since the prior study of 08/06/2019. 2. Percutaneous drain has been placed in the liver and there is now a large area of nonenhancement with pneumobilia and parenchymal air. RIGHT hepatic i nfarct is suspected with progression of ischemic or infectious process. 3. Common bile duct stent has been placed with nearly resolved common bile duct dilatation. 4. New small RIGHT pleural effusion and RIGHT basilar atelectasis. Dictated By:Daly Cueva DO Signed By:Daly Cueva DOSigned Date/Time:08/20/19 1254 DD/ 1236 Discharge Plan Discharge Patient Disposition: Home, Self-Care Clinical Impression: Abdominal pain Qualifiers: Abdominal location: generalized Qualified Code(s): R10.84 - Generalized abdominal pain Condition: Stable Prescriptions: No Action levothyroxine 137 mcg capsule 137 mcg PO DAILY 30 Days Qty: 30 RF: 1 guanfacine 2 mg tablet extended release 24 hr 2 mg PO DAILY RF: 0 betaxolol 10 mg tablet 10 mg PO DAILY Qty: 30 RF: 2 Aleve 220 mg Tablet 220 mg PO PRN RF: 0 Cymbalta 60 mg Capsule,Delayed Release(Dr/Ec) 60 mg PO DAILY RF: 0 Tylenol 1 tab PO PRN RF: 0 Vitamin D2 1,250 mcg (50,000 unit) capsule 1,250 mcg PO Q7D RF: 0 Discharge Orders: Discharge Order (Routine); Ordered 08/20/19 Ordered By: Trung Matos Referrals: Katty Bess, [employer] [Primary Care Provider] - Discharge Diet: Advance as tolerated Discharge Activity: Resume usual activity Patient Instructions: Abdominal Pain (ED) Discharge Date/Time: 08/20/19 14:45 Coding Level of Care Code ED Ladle Mechanic for Chg Fwd Exam Comprehensive The documentation recorded by the Indra monge Carmen, accurately reflects the service I personally performed and the decisions made by Carlo syed Korby, MD Aug 20, 2019 10:51
--- NOTE | 2019-08-20 11:27 | CT_ITS ---
WS: [id number] CT ABDOMEN AND PELVIS WITH CONTRAST HISTORY: abd pain TECHNIQUE: Imaging performed of the abdomen and pelvis with IV contrast. Single phase imaging of the abdomen. Coronal and sagittal reformats are submitted. All CT scans at [facility] use at least one of these dose optimization techniques: automated exposure control; mA and/or kV adjustment per patient size (includes targeted exams where dose is matched to clinical indication); or iterativ e reconstruction. IV CONTRAST: Omnipaque 300; 95 mL IV. Oral contrast: No DLP: 1636.27 mGy.cm COMPARISON: 08/06/2019 Lower thorax: New small RIGHT pleural effusion and RIGHT lower lobe atelectasis. There is a 5 mm nodu le at the RIGHT lung base. Heart is normal size. There are small lymph nodes in the anterior lower th orax adjacent to the pericardium. These were present on the prior study. Liver/biliary system: Significant change in appearance of the liver since 08/06/2019. There is a percu taneous drain coiled in the RIGHT lobe of the liver in the area the previously described necrotic or neoplastic mass. There is a large amount of decreased attenuation and nonenhancement involving the ve ry large portion of the RIGHT lobe of the liver. There is air in the biliary system and in the liver parenchyma. LEFT lobe of the liver appears to be enhancing normally. Patient also has a common bile d uct stent was placed since the prior study. No enhancement of the RIGHT portal vein. LEFT portal vein is still enhancing. There is mild intrahepatic bile duct dilatation which was also present on this p rior study has slightly improved. Gallbladder: Prior cholecystectomy. Pancreas: Duct stent through the pancreas head. No change in the soft tissue adjacent to the pancreat ic head. Spleen: Normal. Adrenal glands: Normal. Right kidney: Normal. Left kidney: Normal. Aorta: Normal. Lymphadenopathy: No change in the oral aortocaval and pelvic lymph nodes. Free fluid: Small amount of free fluid in the pelvis. There is a small amount of fluid adjacent to th e liver. GI tract: Postsurgical changes and anastomotic sutures in the RIGHT abdomen. There is mild constipati on. No obstruction. Abdominal wall: Soft tissue edema and anasarca. Pelvis: Small amount of free fluid in the pelvis. RIGHT pelvic lymph nodes are unchanged as compared to 08/06/2019. Bones: Unremarkable. Notified Trung Matos MD at 08/20/2019 12:[address]/CT abdomen pelvis w con* [id number] IMPRESSION: 1. Significant change in appearance of the liver since the prior study of 08/06. 2. Percutaneous drain has been placed in the liver and there is now a large ar ea of nonenhancement with pneumobilia and parenchymal air. RIGHT hepatic infarc t is suspected with progression of ischemic or infectious process. 3. Common bile duct stent has been placed with nearly resolved common bile meir t dilatation. 4. New small RIGHT pleural effusion and RIGHT basilar atelectasis.
[2019-08-20] MEDS: ondansetron 2 mg/ML SDV 2 mL 4 MG IVP (11:57)
--- NOTE | 2019-08-20 12:05 | PC.NURSE ---
Patient has pancreatic duct drain in place, dried blood is noted. No current active bleeding.
[2019-08-20 12:09] LABS: Basophils % 0.1 %; Eosinophils # 0.1 10^3/uL (0.0-0.8); Eosinophils % 0.4 %; Hematocrit 28.5 % (37.0-47.0); Hemoglobin 8.6 g/dL (11.5-15.3); Lymphocytes % 6.9 %; Mean Corpuscular HGB Conc 30.2 g/dL (30.0-36.0); Mean Corpuscular Hemoglobin 28.5 pg (28.0-34.0); Mean Corpuscular Volume 94.4 fL (81-99); Mean Platelet Volume 9.5 fL (7.4-10.4); Monocytes % 7.1 %; Neutrophils # 11.9 10^3/uL (1.8-7.7); Neutrophils % 84.4 %; Nucleated Red Blood Cells % 0 %; Platelet Count 338 10^3/cmm (130-400); Red Blood Count 3.02 10^6/uL (4.1-5.3); Red Cell Distribution Width 18.9 % (12.1-15.1); White Blood Count 14.2 10^3/uL (4.0-10.0)
[2019-08-20 12:12] VITALS: BP 153/96; PULSE 111; RESP 18; O2SAT 98
[2019-08-20 12:25] LABS: Alanine Aminotransferase 254 U/L (0-33); Albumin Level 2.4 g/dL (3.5-5.2); Alkaline Phosphatase 657 IU/L (35-105); Anion Gap 14.2 (5-19); Aspartate Amino Transferase 47 U/L (0-32); Blood Urea Nitrogen 7 mg/dL (6-20); Calcium 8.9 mg/dL (8.5-10.5); Carbon Dioxide 24 mmol/L (22-29); Chloride 95 mmol/L (98-107); Globulin 4.7 g/dL (1.3-4.6); Glomerular Filtration Rate 166.3 mL/min (90-130); Glucose 178 mg/dL (65-115); Lipase 120 U/L (13-60); Potassium 4.2 mmol/L (3.5-5.1); Sodium 129 mmol/L (136-145); Total Bilirubin 1.7 mg/dL (0.15-1.2); Total Protein 7.1 g/dL (6.6-8.7)
[2019-08-20] MEDS: iohexol 300 mg/mL 100 mL Btl IV (12:32)
[2019-08-20 13:05] VITALS: BP 140/86; PULSE 109; RESP 17; O2SAT 98
--- NOTE | 2019-08-20 13:57 | PC.NURSE ---
Patient updated on plan on care and waiting for surgeon to call back regarding CT results
[2019-08-20 14:45] VITALS: BP 140/82; PULSE 106; RESP 17; O2SAT 96
--- NOTE | 2019-08-20 14:46 | PC.NURSE ---
Patient drain sight cleaned with chlorahexadine and redressed. no bleeding or active drainage noted.
== END 2019-08-20 14:45 | disposition home or self-care (01) ==
PROVIDERS: Emergency Provider Emergency Medicine; Family Provider Nurse Practitioner Family; PCP Nurse Practitioner Family
DX: R10.9 Unspecified abdominal pain (principal); I10 Essential (primary) hypertension; E03.9 Hypothyroidism, unspecified; Z85.05 Personal history of malignant neoplasm of liver; Z85.038 Personal history of other malignant neoplasm of large intestine; Z90.49 Acquired absence of other specified parts of digestive tract
CPT/HCPCS: 74177; 80053; 83690; 85025; 96374; 96375; 99282; 99283; J2405; Q9967

== ENCOUNTER 2019-09-22 08:42 | Outpatient (CLI) | payer BC, SELFPAY ==
--- NOTE | 2019-09-25 12:42 | ONC FU_ITS ---
Dr. Reina follow up note Patient: Anabella Elliott Unit #: [id number]: [id number] Dicatated By: Alrene Reina M.D.Date of Visit:Sep 22, 2019 Onc Med Follow-up/Prog Note History of Present Illness: This is a 54year-old woman with moderately differentiated adenocarcinoma of the rectum, stage DEYANIRA (T3, N1, M1a) with biopsy proven metastatic involvement in the liver. Her tumor was found to be Kras mutation positive and MSI stable. She had presented with two-month history of rectal bleeding. She was referred to Dr. Mccormick. She underwent EGD and colonoscopy on 11/30/2016. The EGD showed evidence of gastritis and chronic benign-appearing gastric ulcers, though she was not having any obvious symptoms associated with it. The colonoscopy showed a partially obstructing, large size, malignant appearing mass in the distal sigmoid colon/proximal rectum. Biopsy of the mass, which was reported to be at 10 cm, showed moderately differentiated adenocarcinoma. Staging CT of the abdomen/pelvis showed no evidence of metastatic disease. There was mild thickening and enhancement of the distal sigmoid colon felt to be likely due to recent postbiopsy changes. A focal area of narrowing in the distal sigmoid was felt to possibly correspond to the partially obstructing lesion. There was evidence of diffuse fatty infiltration of the liver. she was seen in [place] initially on 12/18/2016. She had subsequently opted to continue her treatment at [facility] in [place], [place]. Her further management in [place] included staging chest CT which showed a hypodense lesion within the right lobe of the liver. Further evaluation with MRI showed 7 mm and 3 mm enhancing hepatic lesions within segment 5, inconclusive. Repeat colonoscopy on 01/04/2017 confirmed primary adenocarcinoma of the rectum extending from 8-12 cm from the anus. Staging EUS was consistent with T3, N1 disease. Needle biopsy of the liver lesion on 01/21/2017 showed benign pathology. She then underwent diagnostic laparoscopy on 01/29/2017. She was noted to have a 1 cm suspicious looking lesion at the surface of the liver but within the parenchyma of the liver itself and not on the capsule. A second smaller lesion was located just lateral to it. These were reported to be in segment 6 or at the lateral border of segment 5. A single nodular peritoneal lesion was located in the right diaphragmatic peritoneum. The larger liver lesion was excised with a rim of liver parenchyma around it. The other liver lesion and the peritoneal lesion were biopsied. Pathology on the excised liver lesion showed metastatic adenocarcinoma with mucinous features. The biopsy from the peritoneum and from the other site in the liver showed benign pathology. On further evaluation, the tumor was found to harbor a c. 35G>T (p. G12V) KRAS mutation. NRAS and BRAF mutations were not detected. The tumor was found to be MSI stable. She then began treatment with modified FOLFOX chemotherapy, cycle 1 beginning 02/05/2017. She tolerated the treatment well. She proceeded with cycle 2 on 02/19/2017 and with cycle 3 on 03/12/2017. At that point it apparently was discovered that her insurance would not cover her treatment in [place], and she then returned here for further management of her rectal cancer. Her other medical pulses include GERD, hyperlipidemia, hypothyroidism, and obstructive sleep apnea. She has a history of supraventricular tachycardia for which she underwent a cardiac ablation procedure in 2013.. She also has a history of ADHD and chronic anxiety. Her prior surgeries also include hysterectomy with left oophorectomy in 1999. She is a nonsmoker. INTERIM HISTORY: She was seen here on 04/02/2017. At that time she continued with her 4th cycle of chemotherapy, which she tolerated well. She then began cycle 5 on 04/16/2017 and cycle 6 of 04/30/2017. Restaging CT scans of the chest, abdomen, and pelvis on 05/09/2017 showed no abnormal findings in the chest. The abdomen/pelvis showed slight increase in the size of the low attenuation mass in the posterior segment right hepatic lobe, measuring 11 mm compared to 8 mm on the November 2016 study. No other abnormalities were noted in the liver, and there was no evidence of any other metastatic disease. Minimal asymmetric soft tissue thickening and fluid attenuation along the lateral aspect of the rectum was felt to be nonspecific. during follow-up visit on 05/13/2017. As her tumor did not appear to be responding to the modified FOLFOX chemotherapy, she was referred to Dr. Amaral for consideration of surgical resection of the primary tumor, and she also was referred to Dr. Rodriguez for treatment of the hepatic metastasis. On 06/21/2017 she underwent robotic extended low anterior resection with placement of loop ileostomy. Grossly there was evidence of a single capsular lesion involving the right lateral liver. There was no other obvious metastatic involvement. Pathology showed moderately differentiated adenocarcinoma measuring 3.5 x 3.5 x 1.5 cm. Tumor was noted to extend through the muscularis propria into the perirectal adipose tissue. All margins were uninvolved. There was involvement in 6 of 13 lymph nodes. On 07/18/[address] directed percutaneous hepatic microwave ablation to the segment 6 metastatic lesion .subsequently during follow-up, scan shows recurrence of disease, she was referred to Dr.Megan Gold in [place], as per she underwent intraperitoneal therapy in January 2019 and at that time she was also treated with biweekly chemotherapy.She did well until early July 2019, when someone told her about being yellow looking and patient noticed yellow discoloration of her eyes and went to see her PMD labs done on 08/06/2019 shows bilirubin 7.8 direct bilirubin 6.20 and direct bilirubin 1.6, hepatitis profile was nonreactive, CMP done on 08/06/2019 shows AST 312 ALT 416, bilirubin 7.8 alkaline phosphatase 722 creatinine 0.4 white blood count 9.9 hemoglobin 11.2 hematocrit 36.[address] scan of abdomen pelvis was done on 08/06/2019 showed low attenuation but variable density mass in inferior right lobe of the liver measures 4.5 x 4.1 cm mass extends through liver capsule with adjacent perihepatic fluid, impression was metastatic disease versus hematoma versus abscess. New intrahepatic and extrahepatic bile duct dilatation. New metastatic deposit and/or lymph nodes. Largest deposit posterior to the pancreatic head measuring 2.6 x 1.6 cm. Additional new aortocaval and right pelvic lymph nodes. Surgical anastomotic site in the right abdomen. Partial obstruction suspected at the anastomotic site.Patient was referred to Dr. Rodriguez in [place], as per patient she underwent stent placement in common bile duct and liver abscess was drained, now she has percutaneous drainage and scheduled to see Dr. Rodriguez next Saturday with CT scan of abdomen, if looks reasonable he may take percutaneous drainage out. Denies any fever chills denies any nausea or vomiting, no more jaundice. Normal abdominal pain, but denies weakness and fatigue. No diarrhea constipation, no melena or hematochezia, no hemoptysis or hematemesis. Medications: Betaxolol HCl 1 (10 mg) Tablet Oral daily, Cymbalta 1 (60 mg) Capsule Delayed Release Particles Oral daily, Levothroid 1 (137 mcg) Tablet Oral daily, Ondansetron HCl Tablet Oral, Protonix 1 (40 mg) Tablet, enteric coated Oral daily, Xanax 1 Tablet (of 0.5 mg) Oral at bedtime Allergies: Morphine Sulfate Review of Systems: Constitutional - She has been feeling good generally. Her energy is okay. Appetite is good, although she has lost 10 pounds in the last 3 months. No fever, chills, hot flashes, or night sweats. Energy level is poor, ENMT - She has sinus congestion/drainage. No mouth sores. No sore throat or difficulty swallowing, Hematologic/Lymphatic - No abnormal bruising or bleeding, Respiratory - She has shortness of breath with exertion. No cough. No pleuritic pain, Cardiovascular - No angina pain, Gastrointestinal - No nausea or vomiting. No heartburn or acid reflux. No diarrhea or constipation. No blood in the stool or black stools, Genitourinary (F) - No dysuria or hematuria. No urinary frequency. No urgency or incontinence, Musculoskeletal - She has some pain with carpal tunnel syndrome. She has no other joint or bone pain, Integumentary - She has dark skin and peeling in her groin area, Neurologic - No headache or dizziness. She has numbness in her left middle finger, Psychiatric - No anxiety or depression. No insomnia. Vital Signs: Performed on Sep 22, 2019 09:57 Height - 63.00 in Weight - 172.2 lbs (LOW) BSA - 1.81 sq.m BMI - 30.50 (HIGH) Temperature - 99.1 F (HIGH) Pulse - 50 /min (LOW) Respiration - 20 /min BP - 113/65 mm(hg) O2 Sat - 99 % Pain - 2 Performance Status: 1 - No physically strenuous activity, but ambulatory and able to carry out light or sedentary work (e.g. office work, light house work). (ECOG) Physical Examination: ENMT - . No oral exudates, ulcers, masses, thrush or mucositis. Oropharynx clear. Tongue normal, Respiratory - Lungs are clear to auscultation without rhonchi or wheezing, Cardiovascular - Regular rate and rhythm of heart, Abdomen - Non-tender, non-distended, Good bowel sounds. No guarding or rebound tenderness. No pulsatile masses.well-healed surgical scar. And percutaneous drainage in right upper quadrant, Extremities - no edema. Lab/Imaging: Most recent lab results are not available for this patient. Impression: 1. Patient with moderately differentiated adenocarcinoma, initially discovered by colonoscopy on 11/30/2016. It was initially thought to be at the rectosigmoid junction, with the biopsy was reported be at 10 cm from the anal verge. Her CT abdomen/pelvis at that time reported no evidence of metastatic involvement, but there was note of a tiny right hepatic cyst. 2. She underwent further management at the [facility] in [place], [place]. Repeat colonoscopy confirmed rectal adenocarcinoma extending from 8-12 cm. By transrectal ultrasound, she appeared to have T3, N1 disease. 3. MRI of the abdomen showed 2 small lesions in the right lobe of the liver, one measuring 7 mm and the other [address] directed needle biopsy showed benign pathology. 4. On 01/29/2017 she underwent diagnostic laparoscopy with excisional biopsy of a suspicious 1 cm right hepatic lobe lesion, biopsy of the 2nd right hepatic lobe lesion, and biopsy of a right diaphragmatic peritoneal lesion. The excised liver lesion showed metastatic adenocarcinoma which was K-catherine mutation positive and MSI stable. The other liver lesion and the peritoneal lesion showed benign pathology. 5. She then started treatment with FOLFOX chemotherapy, cycle 1 beginning on 02/05/2017. 6. She had EGD evidence of gastritis and chronic gastric ulcers. These had not been symptomatic. Her other medical illnesses include: 7. Hyperlipidemia. 8. Hypothyroidism. 9. She has a history of cardiac tachyarrhythmia, presumably supraventricular tachycardia. She has had no problems with it following a cardiac ablation procedure in 2013. 6. She is on CPAP for obstructive sleep apnea. 7. She has a history of ADHD and chronic anxiety, well controlled on medication. As of April 2017 she had completed 6 cycles of chemotherapy. She tolerated it very well. However, her restaging CT scans showed increase in the size of the posterior segment right hepatic low attenuation mass, which had been noted on the previous CT from November 2016. The scans were reviewed with the radiologist and compared to the CT and MRI images from [place]. The lesion appears to correlate with the second mass described on the MRI, and the appearance was suspicious for a metastatic lesion. As she did not appear to be responding to the chemotherapy, she was then referred to Dr. Amaral. On 06/21/2017 she underwent robotic extended low anterior resection with placement of loop ileostomy. Final pathologic staging was T3, N2a. At that time she was noted to have a single capsular metastatic lesion involving the right lateral liver. There was no other obvious metastatic disease noted at surgery. On 07/18/2017 she underwent successful percutaneous hepatic microwave ablation to the metastatic segment 6 lesion.During follow-up, she was found to have recurrence, and she was referred to surgeon in [place], good patient underwent intraperitoneal therapy followed by biweekly systemic therapy, doesn't remember the name. Plan: Discussed with patient regarding her questions and concerns, patient is scheduled see Dr. Rodriguez on coming Saturday with CT scan of abdomen and if it shows resolution of hepatic abscess, then, as per patient percutaneous drainage may be taken out. Next In the meantime we will obtain record from [place] regarding her treatment there including systemic therapy She will return to clinic on 10/09/2019 at that time we will discuss with her future plans including observation versus palliative therapy based on discussion with Dr. Rodriguez and reviewing the record from [place]. Addendum case was discussed with Dr. Rodriguez on 09/23/2019, as per him, patient had hepatic hematoma rather than abscess so percutaneous drainage was placed in and there was no evidence of recurrence of disease and his recommendation was observation alone. Signed By: Arlene Reina M.D. <<Signature on File>>
== END 2019-09-22 08:43 | disposition home or self-care (01) ==
LOC: ONCMED 08:43
PROVIDERS: Family Provider Nurse Practitioner Family; PCP Nurse Practitioner Family; Visit Provider Internal Medicine Hematology & Oncology
DX: Z08 Encounter for follow-up examination after completed treatment for malignant neoplasm (principal); Z85.048 Personal history of other malignant neoplasm of rectum, rectosigmoid junction, and anus; K21.9 Gastro-esophageal reflux disease without esophagitis; E78.5 Hyperlipidemia, unspecified; E03.9 Hypothyroidism, unspecified; G47.33 Obstructive sleep apnea (adult) (pediatric); F90.9 Attention-deficit hyperactivity disorder, unspecified type; F41.9 Anxiety disorder, unspecified; Z93.2 Ileostomy status; Z79.899 Other long term (current) drug therapy; Z92.21 Personal history of antineoplastic chemotherapy; Z92.3 Personal history of irradiation
CPT/HCPCS: G0463

== ENCOUNTER 2019-10-08 14:15 | Outpatient (CLI) | payer BC, SELFPAY ==
[2019-10-08 20:25] LABS: Basophils # 0.1 10^3/uL (0.0-0.1); Basophils % 0.8 %; Eosinophils # 0.1 10^3/uL (0.0-0.8); Eosinophils % 1.8 %; Hemoglobin 8.5 g/dL (11.5-15.3); Lymphocytes # 1.4 10^3/uL (0.8-4.8); Lymphocytes % 23.1 %; Mean Corpuscular HGB Conc 28.3 g/dL (30.0-36.0); Mean Corpuscular Hemoglobin 23.9 pg (28.0-34.0); Mean Corpuscular Volume 84.5 fL (81-99); Mean Platelet Volume 8.7 fL (7.4-10.4); Monocytes # 0.9 10^3/uL (0.2-0.9); Monocytes % 14.2 %; Neutrophils # 3.6 10^3/uL (1.8-7.7); Neutrophils % 59.6 %; Nucleated Red Blood Cells % 0 %; Platelet Count 332 10^3/cmm (130-400); Red Blood Count 3.55 10^6/uL (4.1-5.3); Red Cell Distribution Width 17.6 % (12.1-15.1)
[2019-10-08 21:59] LABS: Alanine Aminotransferase 7 U/L (0-33); Albumin Level 2.3 g/dL (3.5-5.2); Alkaline Phosphatase 119 IU/L (35-105); Aspartate Amino Transferase 18 U/L (0-32); Blood Urea Nitrogen 11 mg/dL (6-20); Calcium 8.8 mg/dL (8.5-10.5); Carbon Dioxide 23 mmol/L (22-29); Globulin 4.3 g/dL (1.3-4.6); Glomerular Filtration Rate 166.3 mL/min (90-130); Glucose 81 mg/dL (65-115); Total Bilirubin 0.3 mg/dL (0.15-1.2); Total Protein 6.6 g/dL (6.6-8.7)
[2019-10-08 23:24] LABS: Anion Gap 17.2 (5-19); Chloride 95 mmol/L (98-107); Osmolality Calculated 267 mOsm/kg (285-295); Potassium 4.2 mmol/L (3.5-5.1); Sodium 131 mmol/L (136-145)
== END 2019-10-08 14:16 | disposition home or self-care (01) ==
LOC: ONCMED 10-09 08:35
PROVIDERS: Family Provider Nurse Practitioner Family; PCP Nurse Practitioner Family; Visit Provider Internal Medicine Hematology & Oncology
DX: C20 Malignant neoplasm of rectum (principal); C78.7 Secondary malignant neoplasm of liver and intrahepatic bile duct
CPT/HCPCS: 80053; 85025

== ENCOUNTER 2019-10-21 06:40 | Outpatient (RCR) | payer BC, SELFPAY ==
[2019-10-19 13:16] LABS: Basophils % 0.6 %; Eosinophils # 0.2 10^3/uL (0.0-0.8); Eosinophils % 2.4 %; Hematocrit 32.1 % (37.0-47.0); Hemoglobin 9.2 g/dL (11.5-15.3); Lymphocytes # 1.6 10^3/uL (0.8-4.8); Lymphocytes % 24.1 %; Mean Corpuscular HGB Conc 28.7 g/dL (30.0-36.0); Mean Corpuscular Volume 83.8 fL (81-99); Mean Platelet Volume 8.4 fL (7.4-10.4); Monocytes # 0.7 10^3/uL (0.2-0.9); Monocytes % 10.2 %; Neutrophils # 4.2 10^3/uL (1.8-7.7); Neutrophils % 61.7 %; Nucleated Red Blood Cells % 0 %; Platelet Count 474 10^3/cmm (130-400); Red Blood Count 3.83 10^6/uL (4.1-5.3); Red Cell Distribution Width 18.2 % (12.1-15.1); White Blood Count 6.8 10^3/uL (4.0-10.0)
[2019-10-19 13:26] LABS: Alanine Aminotransferase 7 U/L (0-33); Albumin Level 2.4 g/dL (3.5-5.2); Alkaline Phosphatase 167 IU/L (35-105); Anion Gap 15.9 (5-19); Aspartate Amino Transferase 11 U/L (0-32); Blood Urea Nitrogen 9 mg/dL (6-20); Carbon Dioxide 24 mmol/L (22-29); Chloride 99 mmol/L (98-107); Globulin 5.1 g/dL (1.3-4.6); Glomerular Filtration Rate 166.3 mL/min (90-130); Glucose 94 mg/dL (65-115); Osmolality Calculated 276 mOsm/kg (285-295); Potassium 3.9 mmol/L (3.5-5.1); Sodium 135 mmol/L (136-145); Total Bilirubin 0.2 mg/dL (0.15-1.2); Total Protein 7.5 g/dL (6.6-8.7)
[2019-10-21 14:05] LABS: Ferritin 104 ng/mL (15-150); Iron 17 ug/dL (37-145); Percent Saturation 12.5 % (20-50); Total Iron Binding Capacity 136 mcg/dl; Unsaturated Iron Binding 119 ug/dL (112-347)
--- NOTE | 2019-10-21 14:10 | ONC FU_ITS ---
Dr. Reina follow up note Patient: Anabella Elliott Unit #: [id number]: 1965 Dicatated By: Arlene Reina M.D.Date of Visit:Oct 21, 2019 Onc Med Follow-up/Prog Note History of Present Illness: This is a 54 years -old woman with moderately differentiated adenocarcinoma of the rectum, stage DEYANIRA (T3, N1, M1a) with biopsy proven metastatic involvement in the liver. Her tumor was found to be Kras mutation positive and MSI stable. She had presented with two-month history of rectal bleeding. She was referred to Dr. Mccormick. She underwent EGD and colonoscopy on 11/30/2016. The EGD showed evidence of gastritis and chronic benign-appearing gastric ulcers, though she was not having any obvious symptoms associated with it. The colonoscopy showed a partially obstructing, large size, malignant appearing mass in the distal sigmoid colon/proximal rectum. Biopsy of the mass, which was reported to be at 10 cm, showed moderately differentiated adenocarcinoma. Staging CT of the abdomen/pelvis showed no evidence of metastatic disease. There was mild thickening and enhancement of the distal sigmoid colon felt to be likely due to recent postbiopsy changes. A focal area of narrowing in the distal sigmoid was felt to possibly correspond to the partially obstructing lesion. There was evidence of diffuse fatty infiltration of the liver. she was seen in [place] initially on 12/18/2016. She had subsequently opted to continue her treatment at [facility] in [place], [place]. Her further management in [place] included staging chest CT which showed a hypodense lesion within the right lobe of the liver. Further evaluation with MRI showed 7 mm and 3 mm enhancing hepatic lesions within segment 5, inconclusive. Repeat colonoscopy on 01/04/2017 confirmed primary adenocarcinoma of the rectum extending from 8-12 cm from the anus. Staging EUS was consistent with T3, N1 disease. Needle biopsy of the liver lesion on 01/21/2017 showed benign pathology. She then underwent diagnostic laparoscopy on 01/29/2017. She was noted to have a 1 cm suspicious looking lesion at the surface of the liver but within the parenchyma of the liver itself and not on the capsule. A second smaller lesion was located just lateral to it. These were reported to be in segment 6 or at the lateral border of segment 5. A single nodular peritoneal lesion was located in the right diaphragmatic peritoneum. The larger liver lesion was excised with a rim of liver parenchyma around it. The other liver lesion and the peritoneal lesion were biopsied. Pathology on the excised liver lesion showed metastatic adenocarcinoma with mucinous features. The biopsy from the peritoneum and from the other site in the liver showed benign pathology. On further evaluation, the tumor was found to harbor a c. 35G>T (p. G12V) KRAS mutation. NRAS and BRAF mutations were not detected. The tumor was found to be MSI stable. She then began treatment with modified FOLFOX chemotherapy, cycle 1 beginning 02/05/2017. She tolerated the treatment well. She proceeded with cycle 2 on 02/19/2017 and with cycle 3 on 03/12/2017. At that point it apparently was discovered that her insurance would not cover her treatment in [place], and she then returned here for further management of her rectal cancer. Her other medical pulses include GERD, hyperlipidemia, hypothyroidism, and obstructive sleep apnea. She has a history of supraventricular tachycardia for which she underwent a cardiac ablation procedure in 2013.. She also has a history of ADHD and chronic anxiety. Her prior surgeries also include hysterectomy with left oophorectomy in 1999. She is a nonsmoker. INTERIM HISTORY: She was seen here on 04/02/2017. At that time she continued with her 4th cycle of chemotherapy, which she tolerated well. She then began cycle 5 on 04/16/2017 and cycle 6 of 04/30/2017. Restaging CT scans of the chest, abdomen, and pelvis on 05/09/2017 showed no abnormal findings in the chest. The abdomen/pelvis showed slight increase in the size of the low attenuation mass in the posterior segment right hepatic lobe, measuring 11 mm compared to 8 mm on the November 2016 study. No other abnormalities were noted in the liver, and there was no evidence of any other metastatic disease. Minimal asymmetric soft tissue thickening and fluid attenuation along the lateral aspect of the rectum was felt to be nonspecific. during follow-up visit on 05/13/2017. As her tumor did not appear to be responding to the modified FOLFOX chemotherapy, she was referred to Dr. Amaral for consideration of surgical resection of the primary tumor, and she also was referred to Dr. Rodriguez for treatment of the hepatic metastasis. On 06/21/2017 she underwent robotic extended low anterior resection with placement of loop ileostomy. Grossly there was evidence of a single capsular lesion involving the right lateral liver. There was no other obvious metastatic involvement. Pathology showed moderately differentiated adenocarcinoma measuring 3.5 x 3.5 x 1.5 cm. Tumor was noted to extend through the muscularis propria into the perirectal adipose tissue. All margins were uninvolved. There was involvement in 6 of 13 lymph nodes. On 07/18/[address] directed percutaneous hepatic microwave ablation to the segment 6 metastatic lesion .subsequently during follow-up, scan shows recurrence of disease, she was referred to Dr.Megan Godl in [place], as per she underwent intraperitoneal therapy in January 2019 and at that time she was also treated with biweekly chemotherapy.She did well until early July 2019, when someone told her about being yellow looking and patient noticed yellow discoloration of her eyes and went to see her PMD labs done on 08/06/2019 shows bilirubin 7.8 direct bilirubin 6.20 and direct bilirubin 1.6, hepatitis profile was nonreactive, CMP done on 08/06/2019 shows AST 312 ALT 416, bilirubin 7.8 alkaline phosphatase 722 creatinine 0.4 white blood count 9.9 hemoglobin 11.2 hematocrit 36.[address] scan of abdomen pelvis was done on 08/06/2019 showed low attenuation but variable density mass in inferior right lobe of the liver measures 4.5 x 4.1 cm mass extends through liver capsule with adjacent perihepatic fluid, impression was metastatic disease versus hematoma versus abscess. New intrahepatic and extrahepatic bile duct dilatation. New metastatic deposit and/or lymph nodes. Largest deposit posterior to the pancreatic head measuring 2.6 x 1.6 cm. Additional new aortocaval and right pelvic lymph nodes. Surgical anastomotic site in the right abdomen. Partial obstruction suspected at the anastomotic site.Patient was referred to Dr. Rodriguez in [place], as per patient she underwent stent placement in common bile duct and liver abscess was drained , now she has percutaneous drainage and Being followed by Dr. Rodriguez and recently underwent follow-up CT scan of abdomen which showed improvement in right hematoma, as per discussion with Dr. Rodriguez, there is no evidence of recurrence of disease and he recommended follow-up from oncology point of view and will monitor and manage hepatic hematoma. Came for follow-up, denies any specific complaints, still has hepatic drainage but overall drainage is improving, and being followed by Dr. Rodriguez, and scheduled see him again, on 11/04/2019 denies any fever or chills, denies any nausea or vomiting, occasional abdominal pain is controlled with narcotics. Medications: Betaxolol HCl 1 (10 mg) Tablet Oral daily, Cymbalta 1 (60 mg) Capsule Delayed Release Particles Oral daily, D2000 Ultra Strength 1 Capsule (of 50 mcg ) Oral q 7 days, Levothroid 1 (137 mcg) Tablet Oral daily, Ondansetron HCl Tablet Oral, oxyCODONE-Acetaminophen 1 - 2 Tablet (of 5-325 mg) Oral q 4 to 6 hours PRN, Protonix 1 (40 mg) Tablet, enteric coated Oral daily, Stool Softener Tablet Oral PRN Allergies: fentaNYL and Morphine Sulfate. Review of Systems: Constitutional - She has been feeling good generally. Her energy is okay. Appetite is good, although she has lost 10 pounds in the last 3 months. No fever, chills, hot flashes, or night sweats. Energy level is poor, ENMT - She has sinus congestion/drainage. No mouth sores. No sore throat or difficulty swallowing, Hematologic/Lymphatic - No abnormal bruising or bleeding, Respiratory - She has shortness of breath with exertion. No cough. No pleuritic pain, Cardiovascular - No angina pain, Gastrointestinal - No nausea or vomiting. No heartburn or acid reflux. No diarrhea or constipation. No blood in the stool or black stools, Genitourinary (F) - No dysuria or hematuria. No urinary frequency. No urgency or incontinence, Musculoskeletal - She has some pain with carpal tunnel syndrome. She has no other joint or bone pain, Integumentary - She has dark skin and peeling in her groin area, Neurologic - No headache or dizziness. She has numbness in her left middle finger, Psychiatric - No anxiety or depression. No insomnia. Vital Signs: Performed on Oct 21, 2019 12:44 Height - 63.00 in Weight - 172.2 lbs BSA - 1.81 sq.m BMI - 30.50 (HIGH) Temperature - 98.0 F (LOW) Pulse - 96 /min Respiration - 19 /min BP - 132/78 mm(hg) O2 Sat - 100 % Pain - 0 Performance Status: 1 - No physically strenuous activity, but ambulatory and able to carry out light or sedentary work (e.g. office work, light house work). (ECOG) Physical Examination: ENMT - no mouth sores, Respiratory - lungs clear, Cardiovascular - Regular rate and rhythm of heart, Abdomen - right upper quadrant drainage for hepatic hematoma, nontender, Extremities - no visible edema. Lab/Imaging: Test performed on Oct 08, 2019 14:15 Sodium 131 mmol/L Potassium 4.2 mmol/L Chloride 95 mmol/L CO2 23 mmol/L Anion Gap 17.2 BUN 11 mg/dL Creatinine 0.4 mg/dL Cr Clearance (Est) 198.2600 mL/min eGFR 166.3 mL/min Glucose 81 mg/dL Calcium 8.8 mg/dL Protein, Total 6.6 g/dL Albumin 2.3 g/dL Globulin 4.3 g/dL Bilirubin, Total 0.3 mg/dL ALT (SGPT) 7 U/L AST (SGOT) 18 U/L Alkaline Phosphatase 119 IU/L WBC 6.0 10 3/uL RBC 3.55 10 6/uL HGB 8.5 g/dL HCT 30.0 % MCV 84.5 fL MCH 23.9 pg MCHC 28.3 g/dL RDW 17.6 % Platelet Count 332 10 3/cmm MPV 8.7 fL Neutrophils 3.6 10 3/uL Lymphocytes 1.4 10 3/uL Monocytes 0.9 10 3/uL Eosinophils 0.1 10 3/uL Basophils 0.1 10 3/uL Neutrophil % 59.6 % Lymphocyte % 23.1 % Monocyte % 14.2 % Eosinophil % 1.8 % Basophils % 0.8 % Impression: 1. Patient with moderately differentiated adenocarcinoma, initially discovered by colonoscopy on 11/30/2016. It was initially thought to be at the rectosigmoid junction, with the biopsy was reported be at 10 cm from the anal verge. Her CT abdomen/pelvis at that time reported no evidence of metastatic involvement, but there was note of a tiny right hepatic cyst. 2. She underwent further management at the [facility] in [place], [place]. Repeat colonoscopy confirmed rectal adenocarcinoma extending from 8-12 cm. By transrectal ultrasound, she appeared to have T3, N1 disease. 3. MRI of the abdomen showed 2 small lesions in the right lobe of the liver, one measuring 7 mm and the other [address] directed needle biopsy showed benign pathology. 4. On 01/29/2017 she underwent diagnostic laparoscopy with excisional biopsy of a suspicious 1 cm right hepatic lobe lesion, biopsy of the 2nd right hepatic lobe lesion, and biopsy of a right diaphragmatic peritoneal lesion. The excised liver lesion showed metastatic adenocarcinoma which was K-catherine mutation positive and MSI stable. The other liver lesion and the peritoneal lesion showed benign pathology. 5. She then started treatment with FOLFOX chemotherapy, cycle 1 beginning on 02/05/2017. 6. She had EGD evidence of gastritis and chronic gastric ulcers. These had not been symptomatic. Her other medical illnesses include: 7. Hyperlipidemia. 8. Hypothyroidism. 9. She has a history of cardiac tachyarrhythmia, presumably supraventricular tachycardia. She has had no problems with it following a cardiac ablation procedure in 2013. 6. She is on CPAP for obstructive sleep apnea. 7. She has a history of ADHD and chronic anxiety, well controlled on medication. As of April 2017 she had completed 6 cycles of chemotherapy. She tolerated it very well. However, her restaging CT scans showed increase in the size of the posterior segment right hepatic low attenuation mass, which had been noted on the previous CT from November 2016. The scans were reviewed with the radiologist and compared to the CT and MRI images from [place]. The lesion appears to correlate with the second mass described on the MRI, and the appearance was suspicious for a metastatic lesion. As she did not appear to be responding to the chemotherapy, she was then referred to Dr. Amaral. On 06/21/2017 she underwent robotic extended low anterior resection with placement of loop ileostomy. Final pathologic staging was T3, N2a. At that time she was noted to have a single capsular metastatic lesion involving the right lateral liver. There was no other obvious metastatic disease noted at surgery. On 07/18/2017 she underwent successful percutaneous hepatic microwave ablation to the metastatic segment 6 lesion.During follow-up, she was found to have recurrence, and she was referred to surgeon in [place], good patient underwent intraperitoneal therapy followed by biweekly systemic therapy, doesn't remember the name. Plan: Discussed with patient regarding her labs white blood count 6.8 hemoglobin 9.2 crit 32.1 platelets 474,000 CMP within normal limits CEA 5.1 Clinically, patient is doing reasonably well, now with right upper quadrant drainage for hepatic hematoma, being managed by Dr. Rodriguez, surgeon in [place]., As per patient her recently done CT scan of abdomen showed further improvement in hepatic hematoma, and drainages also improving. And she has follow-up appointment with Dr. Rodriguez on 11/04/2019. As far as colon cancer status is concern, as per discussion with Dr. Rodriguez recently, her follow-up CT scan done showed no evidence of recurrence of disease, continue with observation was recommended. She has mildly elevated CEA level, will continue to monitor and if CEA level continued to go up then will consider follow-up CT PET scan otherwise , she will return to clinic in 3 months with CBC CMP and CEA. As for his anemia is concerned, could be multifactorial including anemia of chronic disease, but we will check iron studies and B12 folic acid level if low, will consider supplements Signed By: Arlene Reina M.D. <<Signature on File>>
[2019-10-21 14:21] LABS: Vitamin B12 1074 pg/mL (232-1245)
== END 2019-10-22 23:59 | disposition home or self-care (01) ==
LOC: ONCMED 06:40
PROVIDERS: Family Provider Nurse Practitioner Family; PCP Nurse Practitioner Family; Visit Provider Internal Medicine Hematology & Oncology
DX: C20 Malignant neoplasm of rectum (principal); C78.7 Secondary malignant neoplasm of liver and intrahepatic bile duct; K29.50 Unspecified chronic gastritis without bleeding; K25.7 Chronic gastric ulcer without hemorrhage or perforation; E78.5 Hyperlipidemia, unspecified; E03.9 Hypothyroidism, unspecified; G47.33 Obstructive sleep apnea (adult) (pediatric); F90.9 Attention-deficit hyperactivity disorder, unspecified type; F41.9 Anxiety disorder, unspecified; Z92.21 Personal history of antineoplastic chemotherapy; Z79.899 Other long term (current) drug therapy
CPT/HCPCS: 36415; 80053; 82607; 82728; 83540; 83550; 85025; 99214

== ENCOUNTER → 2020-01-20 10:13 | Outpatient (BNVA) | payer BC, SELFPAY | PROVIDERS: Family Provider Nurse Practitioner Family; PCP Nurse Practitioner Family; Visit Provider Internal Medicine Hematology & Oncology | DX: Z85.05 Personal history of malignant neoplasm of liver (principal) | CPT/HCPCS: 80053; 85007; 85027 ==

== ENCOUNTER 2020-01-21 12:58 | Outpatient (CLI) | payer BC, SELFPAY ==
--- NOTE | 2020-01-22 12:54 | ONC FU_ITS ---
Dr. Reina follow up note Patient: Anabella Elliott Unit #: [id number]: 1965 Dicatated By: Arlene Reina M.D.Date of Visit:Jan 21, 2020 Onc Med Follow-up/Prog Note History of Present Illness: This is a 54 years -old woman with moderately differentiated adenocarcinoma of the rectum, stage DEYANIRA (T3, N1, M1a) with biopsy proven metastatic involvement in the liver. Her tumor was found to be Kras mutation positive and MSI stable. She had presented with two-month history of rectal bleeding. She was referred to Dr. Mccormick. She underwent EGD and colonoscopy on 11/30/2016. The EGD showed evidence of gastritis and chronic benign-appearing gastric ulcers, though she was not having any obvious symptoms associated with it. The colonoscopy showed a partially obstructing, large size, malignant appearing mass in the distal sigmoid colon/proximal rectum. Biopsy of the mass, which was reported to be at 10 cm, showed moderately differentiated adenocarcinoma. Staging CT of the abdomen/pelvis showed no evidence of metastatic disease. There was mild thickening and enhancement of the distal sigmoid colon felt to be likely due to recent postbiopsy changes. A focal area of narrowing in the distal sigmoid was felt to possibly correspond to the partially obstructing lesion. There was evidence of diffuse fatty infiltration of the liver. she was seen in [place] initially on 12/18/2016. She had subsequently opted to continue her treatment at [facility] in [place], [place]. Her further management in [place] included staging chest CT which showed a hypodense lesion within the right lobe of the liver. Further evaluation with MRI showed 7 mm and 3 mm enhancing hepatic lesions within segment 5, inconclusive. Repeat colonoscopy on 01/04/2017 confirmed primary adenocarcinoma of the rectum extending from 8-12 cm from the anus. Staging EUS was consistent with T3, N1 disease. Needle biopsy of the liver lesion on 01/21/2017 showed benign pathology. She then underwent diagnostic laparoscopy on 01/29/2017. She was noted to have a 1 cm suspicious looking lesion at the surface of the liver but within the parenchyma of the liver itself and not on the capsule. A second smaller lesion was located just lateral to it. These were reported to be in segment 6 or at the lateral border of segment 5. A single nodular peritoneal lesion was located in the right diaphragmatic peritoneum. The larger liver lesion was excised with a rim of liver parenchyma around it. The other liver lesion and the peritoneal lesion were biopsied. Pathology on the excised liver lesion showed metastatic adenocarcinoma with mucinous features. The biopsy from the peritoneum and from the other site in the liver showed benign pathology. On further evaluation, the tumor was found to harbor a c. 35G>T (p. G12V) KRAS mutation. NRAS and BRAF mutations were not detected. The tumor was found to be MSI stable. She then began treatment with modified FOLFOX chemotherapy, cycle 1 beginning 02/05/2017. She tolerated the treatment well. She proceeded with cycle 2 on 02/19/2017 and with cycle 3 on 03/12/2017. At that point it apparently was discovered that her insurance would not cover her treatment in [place], and she then returned here for further management of her rectal cancer. Her other medical pulses include GERD, hyperlipidemia, hypothyroidism, and obstructive sleep apnea. She has a history of supraventricular tachycardia for which she underwent a cardiac ablation procedure in 2013.. She also has a history of ADHD and chronic anxiety. Her prior surgeries also include hysterectomy with left oophorectomy in 1999. She is a nonsmoker. INTERIM HISTORY: She was seen here on 04/02/2017. At that time she continued with her 4th cycle of chemotherapy, which she tolerated well. She then began cycle 5 on 04/16/2017 and cycle 6 of 04/30/2017. Restaging CT scans of the chest, abdomen, and pelvis on 05/09/2017 showed no abnormal findings in the chest. The abdomen/pelvis showed slight increase in the size of the low attenuation mass in the posterior segment right hepatic lobe, measuring 11 mm compared to 8 mm on the November 2016 study. No other abnormalities were noted in the liver, and there was no evidence of any other metastatic disease. Minimal asymmetric soft tissue thickening and fluid attenuation along the lateral aspect of the rectum was felt to be nonspecific. during follow-up visit on 05/13/2017. As her tumor did not appear to be responding to the modified FOLFOX chemotherapy, she was referred to Dr. Amaral for consideration of surgical resection of the primary tumor, and she also was referred to Dr. Rodriguez for treatment of the hepatic metastasis. On 06/21/2017 she underwent robotic extended low anterior resection with placement of loop ileostomy. Grossly there was evidence of a single capsular lesion involving the right lateral liver. There was no other obvious metastatic involvement. Pathology showed moderately differentiated adenocarcinoma measuring 3.5 x 3.5 x 1.5 cm. Tumor was noted to extend through the muscularis propria into the perirectal adipose tissue. All margins were uninvolved. There was involvement in 6 of 13 lymph nodes. On 07/18/[address] directed percutaneous hepatic microwave ablation to the segment 6 metastatic lesion .subsequently during follow-up, scan shows recurrence of disease, she was referred to Dr.Megan Gold in [place], as per she underwent intraperitoneal therapy in January 2019 and at that time she was also treated with biweekly chemotherapy.She did well until early July 2019, when someone told her about being yellow looking and patient noticed yellow discoloration of her eyes and went to see her PMD labs done on 08/06/2019 shows bilirubin 7.8 direct bilirubin 6.20 and direct bilirubin 1.6, hepatitis profile was nonreactive, CMP done on 08/06/2019 shows AST 312 ALT 416, bilirubin 7.8 alkaline phosphatase 722 creatinine 0.4 white blood count 9.9 hemoglobin 11.2 hematocrit 36.[address] scan of abdomen pelvis was done on 08/06/2019 showed low attenuation but variable density mass in inferior right lobe of the liver measures 4.5 x 4.1 cm mass extends through liver capsule with adjacent perihepatic fluid, impression was metastatic disease versus hematoma versus abscess. New intrahepatic and extrahepatic bile duct dilatation. New metastatic deposit and/or lymph nodes. Largest deposit posterior to the pancreatic head measuring 2.6 x 1.6 cm. Additional new aortocaval and right pelvic lymph nodes. Surgical anastomotic site in the right abdomen. Partial obstruction suspected at the anastomotic site.Patient was referred to Dr. Rodriguez in [place], as per patient she underwent stent placement in common bile duct and liver abscess was drained , now she has percutaneous drainage and Being followed by Dr. Rodriguez and recently underwent follow-up CT scan of abdomen which showed improvement in right hematoma, as per discussion with Dr. Rodriguez, there is no evidence of recurrence of disease and he recommended follow-up from oncology point of view and will monitor and manage hepatic hematoma. 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 Rodriguez is following and she is scheduled to see him on coming Saturday. Other than that overall feeling better, appetite is better weight is stable. Medications: Amitriptyline HCl 1 Tablet (of 10 mg) Oral at bedtime, Betaxolol HCl 1 (10 mg) Tablet Oral daily, Cymbalta 1 (60 mg) Capsule Delayed Release Particles Oral daily, D2000 Ultra Strength 1 Capsule (of 50 mcg ) Oral q 7 days, Levothroid 1 (137 mcg) Tablet Oral daily, Ondansetron HCl Tablet Oral, oxyCODONE-Acetaminophen 1 - 2 Tablet (of 5-325 mg) Oral q 4 to 6 hours PRN, Protonix 1 (40 mg) Tablet, enteric coated Oral daily, Stool Softener Tablet Oral PRN Allergies: fentaNYL and Morphine Sulfate. Review of Systems: Constitutional - She has been feeling good generally. Her energy is okay. Appetite is good, although she has lost 10 pounds in the last 3 months. No fever, chills, hot flashes, or night sweats. Energy level is poor, ENMT - She has sinus congestion/drainage. No mouth sores. No sore throat or difficulty swallowing, Hematologic/Lymphatic - No abnormal bruising or bleeding, Respiratory - She has shortness of breath with exertion. No cough. No pleuritic pain, Cardiovascular - No angina pain, Gastrointestinal - No nausea or vomiting. No heartburn or acid reflux. No diarrhea or constipation. No blood in the stool or black stools, Genitourinary (F) - No dysuria or hematuria. No urinary frequency. No urgency or incontinence, Musculoskeletal - She has some pain with carpal tunnel syndrome. She has no other joint or bone pain, Integumentary - She has dark skin and peeling in her groin area, Neurologic - No headache or dizziness. She has numbness in her left middle finger, Psychiatric - No anxiety or depression. No insomnia. Vital Signs: Performed on Jan 21, 2020 13:34 Height - 63.00 in Weight - 154.2 lbs (LOW) BSA - 1.73 sq.m BMI - 27.32 Temperature - 98.7 F Pulse - 87 /min Respiration - 16 /min BP - 126/84 mm(hg) O2 Sat - 99 % Pain - 0 Performance Status: 1 - No physically strenuous activity, but ambulatory and able to carry out light or sedentary work (e.g. office work, light house work). (ECOG) Physical Examination: ENMT - No mouth sores, no thrush, no jaundice, Respiratory - Lungs are clear, Cardiovascular - Regular rate and rhythm of heart, Abdomen - Soft, bowel sounds present, mild tenderness, drainage tubes showed no sign of infection, Extremities - No visible edema. Lab/Imaging: Test performed on Jan 21, 2020 09:37 Glucose 87 mg/dL BUN 19 mg/dL Creatinine 1.17 mg/dL Cr Clearance (Est) 60.7000 mL/min Sodium 134 mmol/L Potassium 4.7 mmol/L Chloride 99 mmol/L CO2 27 mmol/L Calcium 9.7 mg/dL Protein, Total 7.0 g/dL Albumin 3.8 g/dL Bilirubin, Total 0.4 mg/dL Alkaline Phosphatase 82 IU/L AST (SGOT) 20 IU/L ALT (SGPT) 15 IU/L Test performed on Jan 20, 2020 10:13 Globulin 4.2 g/dL WBC 10.0 10^9/L RBC 4.78 10^12/L HGB 11.4 g/dL HCT 39.2 % MCV 82.0 fl MCH 23.8 pg MCHC 29.1 g/dL RDW 16.3 % Platelet Count 386 10^9/L MPV 9.9 fL Manual Lymphocytes 13 % Manual Monocytes 5.0 % Manual Eosinophils 4 % Test performed on Oct 19, 2019 07:10 Ferritin 104 ng/mL Iron 17 mcg/dL Vitamin B12 1074 pg/mL Iron Binding Capacity (TIBC) 136 mcg/dl % Iron Saturation 12.5 % UIBC 119 mcg/dL Anion Gap 15.9 eGFR 166.3 mL/min Neutrophils 4.2 10 3/uL Lymphocytes 1.6 10 3/uL Monocytes 0.7 10 3/uL Eosinophils 0.2 10 3/uL Basophils 0.0 10 3/uL Neutrophil % 61.7 % Lymphocyte % 24.1 % Monocyte % 10.2 % Eosinophil % 2.4 % Basophils % 0.6 % Impression: 1. Patient with moderately differentiated adenocarcinoma, initially discovered by colonoscopy on 11/30/2016. It was initially thought to be at the rectosigmoid junction, with the biopsy was reported be at 10 cm from the anal verge. Her CT abdomen/pelvis at that time reported no evidence of metastatic involvement, but there was note of a tiny right hepatic cyst. 2. She underwent further management at the [facility] in [place], [place]. Repeat colonoscopy confirmed rectal adenocarcinoma extending from 8-12 cm. By transrectal ultrasound, she appeared to have T3, N1 disease. 3. MRI of the abdomen showed 2 small lesions in the right lobe of the liver, one measuring 7 mm and the other [address] directed needle biopsy showed benign pathology. 4. On 01/29/2017 she underwent diagnostic laparoscopy with excisional biopsy of a suspicious 1 cm right hepatic lobe lesion, biopsy of the 2nd right hepatic lobe lesion, and biopsy of a right diaphragmatic peritoneal lesion. The excised liver lesion showed metastatic adenocarcinoma which was K-catherine mutation positive and MSI stable. The other liver lesion and the peritoneal lesion showed benign pathology. 5. She then started treatment with FOLFOX chemotherapy, cycle 1 beginning on 02/05/2017. 6. She had EGD evidence of gastritis and chronic gastric ulcers. These had not been symptomatic. Her other medical illnesses include: 7. Hyperlipidemia. 8. Hypothyroidism. 9. She has a history of cardiac tachyarrhythmia, presumably supraventricular tachycardia. She has had no problems with it following a cardiac ablation procedure in 2013. 6. She is on CPAP for obstructive sleep apnea. 7. She has a history of ADHD and chronic anxiety, well controlled on medication. As of April 2017 she had completed 6 cycles of chemotherapy. She tolerated it very well. However, her restaging CT scans showed increase in the size of the posterior segment right hepatic low attenuation mass, which had been noted on the previous CT from November 2016. The scans were reviewed with the radiologist and compared to the CT and MRI images from [place]. The lesion appears to correlate with the second mass described on the MRI, and the appearance was suspicious for a metastatic lesion. As she did not appear to be responding to the chemotherapy, she was then referred to Dr. Amaral. On 06/21/2017 she underwent robotic extended low anterior resection with placement of loop ileostomy. Final pathologic staging was T3, N2a. At that time she was noted to have a single capsular metastatic lesion involving the right lateral liver. There was no other obvious metastatic disease noted at surgery. On 07/18/2017 she underwent successful percutaneous hepatic microwave ablation to the metastatic segment 6 lesion.During follow-up, she was found to have recurrence, and she was referred to surgeon in [place], good patient underwent intraperitoneal therapy followed by biweekly systemic therapy, doesn't remember the name. Plan: Discussed with patient regarding her labs white blood count 10 hemoglobin 11.4 crit 39.2 platelets 386,000 CMP within normal limits except alk phos 350 Clinically, patient doing well with no signs symptoms suggestive of recurrence of disease, as confirmed by her surgeon in [place], patient is being followed by Dr. Rodriguez, her surgeon in [place] closely and on regular basis, as per patient she underwent another surgery since her last visit because of migrating common bile duct stent causing gut perforation. Her lab work-up showed improvement in her mild/moderate anemia and hemoglobin is 11.4 g compared to 9.2 g on October 19, 2019, we will continue to monitor and she will return to clinic in 6 months with CBC CMP. In the meantime she will continue to follow with Dr. Rodriguez Signed By: Arlene Reina M.D. <<Signature on File>>
== END 2020-01-21 12:59 | disposition home or self-care (01) ==
LOC: ONCMED 13:00
PROVIDERS: PCP Nurse Practitioner Family; Visit Provider Internal Medicine Hematology & Oncology
DX: Z08 Encounter for follow-up examination after completed treatment for malignant neoplasm (principal); Z85.048 Personal history of other malignant neoplasm of rectum, rectosigmoid junction, and anus; E78.5 Hyperlipidemia, unspecified; E03.9 Hypothyroidism, unspecified; G47.33 Obstructive sleep apnea (adult) (pediatric); F90.9 Attention-deficit hyperactivity disorder, unspecified type; F41.9 Anxiety disorder, unspecified; D64.9 Anemia, unspecified; Z92.21 Personal history of antineoplastic chemotherapy; Z90.49 Acquired absence of other specified parts of digestive tract
CPT/HCPCS: G0463

== ENCOUNTER 2020-02-24 09:39 | Outpatient (CLI) | payer SELFPAY ==
--- NOTE | 2020-02-24 09:46 | XRR_ITS ---
PROCEDURE INFORMATION: Exam: XR Chest, 2 Views Exam date and time: 02/24/2020 9:56 AM Age: 54 years old Clinical indication: Patient HX: C/O shortness of breath/back pain. HX of colon cancer. HX of biliary drain; Additional info: Shortness of breath/dorsalgia TECHNIQUE: Imaging protocol: XR of the chest Views: 2 views. COMPARISON: CT Chest/Abdomen/Pelvis w IV* 05/09/2017 12:42 PM FINDINGS: Tubes, catheters and devices: Termination med port catheter in the superior vena cava. Lungs: 12 mm nodular density overlying the right mid lung field. Hyperinflation and mild interstitial prominence. Pleural space: Questionable small right pleural effusion. Heart/Mediastinum: No cardiomegaly. Diaphragm: Asymmetric elevation of the left hemidiaphragm. Bones/joints: Degenerative change. XR/XR chest 2V* [id number] IMPRESSION: 1. 12 mm nodular density overlying the right mid lung field. 2. Additional findings as described above.
== END 2020-02-24 09:40 | disposition home or self-care (01) ==
LOC: RAD 09:41
PROVIDERS: PCP Nurse Practitioner Family; Visit Provider Surgery
DX: R06.02 Shortness of breath (principal); M54.9 Dorsalgia, unspecified; R91.1 Solitary pulmonary nodule
CPT/HCPCS: 71046

== ENCOUNTER 2020-04-28 10:48 | Outpatient (CLI) | payer BC, SELFPAY ==
--- NOTE | 2020-04-28 11:00 | XR_ITS ---
WS: [id number] XR KUB [id number] REASON FOR EXAM: ABD PAIN FINDINGS: 2 long overlapping stents are seen in the right upper quadrant medial to the gallbladder clips. Based on review of previous imaging, presumably these biliary stent drainage from the the liver, possibly post partial hepatectomy. The distal portion of the overlapping stents is kinked. The degree of steno sis uncertain from this study. No air is seen within the liver region. The bowel gas pattern is unremarkable with no free air. In the pelvis midline staple line is noted. Staple line also seen in the right lower quadrant. No mass or significant calcifications. XR/XR KUB [id number] IMPRESSION: Presumed biliary stent as described above. No acute abnormality.
== END 2020-04-28 10:49 | disposition home or self-care (01) ==
LOC: RAD 10:57
PROVIDERS: PCP Nurse Practitioner Family; Visit Provider Surgery
DX: R10.9 Unspecified abdominal pain (principal); Z96.0 Presence of urogenital implants
CPT/HCPCS: 74018

== ENCOUNTER 2020-05-04 12:20 | Outpatient (CLI) | payer BC, SELFPAY ==
[2020-05-04 14:19] LABS: Alanine Aminotransferase 208 U/L (0-33); Albumin Level 3.3 g/dL (3.5-5.2); Alkaline Phosphatase 1124 IU/L (35-105); Anion Gap 13.3 (5-19); Aspartate Amino Transferase 352 U/L (0-32); Blood Urea Nitrogen 9 mg/dL (6-20); Calcium 9.5 mg/dL (8.5-10.5); Carbon Dioxide 24 mmol/L (22-29); Chloride 96 mmol/L (98-107); Globulin 4.9 g/dL (1.3-4.6); Glomerular Filtration Rate 166.3 mL/min (90-130); Glucose 152 mg/dL (65-115); Osmolality Calculated 272 mOsm/kg (285-295); Potassium 3.3 mmol/L (3.5-5.1); Sodium 130 mmol/L (136-145); Total Bilirubin 6.8 mg/dL (0.15-1.2); Total Protein 8.2 g/dL (6.6-8.7)
== END 2020-05-04 12:21 | disposition home or self-care (01) ==
PROVIDERS: PCP Nurse Practitioner Family; Visit Provider Surgery
DX: R17 Unspecified jaundice (principal)
CPT/HCPCS: 36415; 80053

== ENCOUNTER → 2020-05-26 08:33 | Outpatient (BNVA) | payer BC, SELFPAY | PROVIDERS: PCP Nurse Practitioner Family; Visit Provider Nurse Practitioner | DX: R17 Unspecified jaundice (principal) | CPT/HCPCS: 80076 ==

== ENCOUNTER → 2020-06-02 10:23 | Outpatient (BNVA) | payer BC, SELFPAY | PROVIDERS: PCP Nurse Practitioner Family; Visit Provider Surgery | DX: C78.7 Secondary malignant neoplasm of liver and intrahepatic bile duct (principal); K83.1 Obstruction of bile duct | CPT/HCPCS: 80076 ==

== ENCOUNTER → 2020-06-14 08:57 | Outpatient (BNVA) | payer BC, SELFPAY | PROVIDERS: PCP Nurse Practitioner Family; Visit Provider Nurse Practitioner | DX: Z85.05 Personal history of malignant neoplasm of liver (principal) | CPT/HCPCS: 80076 ==

== ENCOUNTER → 2020-06-29 09:38 | Outpatient (BNVA) | payer BC, SELFPAY | PROVIDERS: PCP Nurse Practitioner Family; Visit Provider Nurse Practitioner | DX: R17 Unspecified jaundice (principal) | CPT/HCPCS: 80076 ==

== ENCOUNTER → 2020-07-13 09:14 | Outpatient (BNVA) | payer BC, SELFPAY | PROVIDERS: PCP Nurse Practitioner Family; Visit Provider Nurse Practitioner | DX: Z85.05 Personal history of malignant neoplasm of liver (principal) | CPT/HCPCS: 80076 ==

== ENCOUNTER → 2020-08-04 08:52 | Outpatient (BNVA) | payer BC, SELFPAY | PROVIDERS: PCP Nurse Practitioner Family; Visit Provider Internal Medicine Hematology & Oncology | DX: Z85.05 Personal history of malignant neoplasm of liver (principal) | CPT/HCPCS: 80053; 85025 ==

== ENCOUNTER 2020-08-26 07:47 | Outpatient (CLI) | payer OTHER, SELFPAY ==
[2020-08-26 09:01] LABS: Alanine Aminotransferase 70 U/L (0-33); Albumin Level 3.4 g/dL (3.5-5.2); Alkaline Phosphatase 776 IU/L (35-105); Anion Gap 13.5 (5-19); Aspartate Amino Transferase 51 U/L (0-32); Blood Urea Nitrogen 16 mg/dL (6-20); Calcium 9.5 mg/dL (8.5-10.5); Carbon Dioxide 24 mmol/L (22-29); Chloride 97 mmol/L (98-107); Glomerular Filtration Rate 103.8 mL/min (90-130); Glucose 171 mg/dL (65-115); Osmolality Calculated 277 mOsm/kg (285-295); Potassium 3.5 mmol/L (3.5-5.1); Sodium 131 mmol/L (136-145); Total Bilirubin 5.9 mg/dL (0.15-1.2); Total Protein 8.4 g/dL (6.6-8.7)
[2020-08-26 09:31] LABS: Hematocrit 35.6 % (37.0-47.0); Hemoglobin 11.8 g/dL (11.5-15.3); Mean Corpuscular HGB Conc 33.1 g/dL (30.0-36.0); Mean Corpuscular Hemoglobin 28.2 pg (28.0-34.0); Mean Corpuscular Volume 85.2 fL (81-99); Mean Platelet Volume 10.5 fL (7.4-10.4); Platelet Count 329 10^3/cmm (130-400); Red Blood Count 4.18 10^6/uL (4.1-5.3); White Blood Count 16.9 10^3/uL (4.0-10.0)
[2020-08-26 09:33] LABS: Absolute Neutrophil 15.2 10^3/cmm (1.4-6.5); Absolute Segmented Neutrophil 13.5 10/cmm (1.6-7.1); Band Neutrophils Absolute 1.7 10^3/cmm (0.0-1.2); Lymphocytes 3 %; Microcytosis 1+; Monocytes Absolute 1.2 10^3/cmm (0.1-0.6); Platelet Estimate Normal (Normal); Segmented Neutrophils 80 %; Total Cells Counted 100 (0-100)
[2020-08-26 09:34] LABS: Eosinophils 0 %
--- NOTE | 2020-08-26 11:23 | ONC FU_ITS ---
Dr. Reina follow up note Patient: Anabella Elliott Unit #: [id number]: 1965 Dicatated By: Arlene Reina M.D.Date of Visit:Aug 26, 2020 Onc Med Follow-up/Prog Note History of Present Illness: This is a 55 years -old woman with moderately differentiated adenocarcinoma of the rectum, stage DEYANIRA (T3, N1, M1a) with biopsy proven metastatic involvement in the liver. Her tumor was found to be Kras mutation positive and MSI stable. She had presented with two-month history of rectal bleeding. She was referred to Dr. Mccormick. She underwent EGD and colonoscopy on 11/30/2016. The EGD showed evidence of gastritis and chronic benign-appearing gastric ulcers, though she was not having any obvious symptoms associated with it. The colonoscopy showed a partially obstructing, large size, malignant appearing mass in the distal sigmoid colon/proximal rectum. Biopsy of the mass, which was reported to be at 10 cm, showed moderately differentiated adenocarcinoma. Staging CT of the abdomen/pelvis showed no evidence of metastatic disease. There was mild thickening and enhancement of the distal sigmoid colon felt to be likely due to recent postbiopsy changes. A focal area of narrowing in the distal sigmoid was felt to possibly correspond to the partially obstructing lesion. There was evidence of diffuse fatty infiltration of the liver. she was seen in [place] initially on 12/18/2016. She had subsequently opted to continue her treatment at [facility] in [place], [place]. Her further management in [place] included staging chest CT which showed a hypodense lesion within the right lobe of the liver. Further evaluation with MRI showed 7 mm and 3 mm enhancing hepatic lesions within segment 5, inconclusive. Repeat colonoscopy on 01/04/2017 confirmed primary adenocarcinoma of the rectum extending from 8-12 cm from the anus. Staging EUS was consistent with T3, N1 disease. Needle biopsy of the liver lesion on 01/21/2017 showed benign pathology. She then underwent diagnostic laparoscopy on 01/29/2017. She was noted to have a 1 cm suspicious looking lesion at the surface of the liver but within the parenchyma of the liver itself and not on the capsule. A second smaller lesion was located just lateral to it. These were reported to be in segment 6 or at the lateral border of segment 5. A single nodular peritoneal lesion was located in the right diaphragmatic peritoneum. The larger liver lesion was excised with a rim of liver parenchyma around it. The other liver lesion and the peritoneal lesion were biopsied. Pathology on the excised liver lesion showed metastatic adenocarcinoma with mucinous features. The biopsy from the peritoneum and from the other site in the liver showed benign pathology. On further evaluation, the tumor was found to harbor a c. 35G>T (p. G12V) KRAS mutation. NRAS and BRAF mutations were not detected. The tumor was found to be MSI stable. She then began treatment with modified FOLFOX chemotherapy, cycle 1 beginning 02/05/2017. She tolerated the treatment well. She proceeded with cycle 2 on 02/19/2017 and with cycle 3 on 03/12/2017. At that point it apparently was discovered that her insurance would not cover her treatment in [place], and she then returned here for further management of her rectal cancer. Her other medical pulses include GERD, hyperlipidemia, hypothyroidism, and obstructive sleep apnea. She has a history of supraventricular tachycardia for which she underwent a cardiac ablation procedure in 2013.. She also has a history of ADHD and chronic anxiety. Her prior surgeries also include hysterectomy with left oophorectomy in 1999. She is a nonsmoker. INTERIM HISTORY: She was seen here on 04/02/2017. At that time she continued with her 4th cycle of chemotherapy, which she tolerated well. She then began cycle 5 on 04/16/2017 and cycle 6 of 04/30/2017. Restaging CT scans of the chest, abdomen, and pelvis on 05/09/2017 showed no abnormal findings in the chest. The abdomen/pelvis showed slight increase in the size of the low attenuation mass in the posterior segment right hepatic lobe, measuring 11 mm compared to 8 mm on the November 2016 study. No other abnormalities were noted in the liver, and there was no evidence of any other metastatic disease. Minimal asymmetric soft tissue thickening and fluid attenuation along the lateral aspect of the rectum was felt to be nonspecific. during follow-up visit on 05/13/2017. As her tumor did not appear to be responding to the modified FOLFOX chemotherapy, she was referred to Dr. Amaral for consideration of surgical resection of the primary tumor, and she also was referred to Dr. Rodriguez for treatment of the hepatic metastasis. On 06/21/2017 she underwent robotic extended low anterior resection with placement of loop ileostomy. Grossly there was evidence of a single capsular lesion involving the right lateral liver. There was no other obvious metastatic involvement. Pathology showed moderately differentiated adenocarcinoma measuring 3.5 x 3.5 x 1.5 cm. Tumor was noted to extend through the muscularis propria into the perirectal adipose tissue. All margins were uninvolved. There was involvement in 6 of 13 lymph nodes. On 07/18/[address] directed percutaneous hepatic microwave ablation to the segment 6 metastatic lesion .subsequently during follow-up, scan shows recurrence of disease, she was referred to Dr.Megan Gold in [place], as per she underwent intraperitoneal therapy in January 2019 and at that time she was also treated with biweekly chemotherapy.She did well until early July 2019, when someone told her about being yellow looking and patient noticed yellow discoloration of her eyes and went to see her PMD labs done on 08/06/2019 shows bilirubin 7.8 direct bilirubin 6.20 and direct bilirubin 1.6, hepatitis profile was nonreactive, CMP done on 08/06/2019 shows AST 312 ALT 416, bilirubin 7.8 alkaline phosphatase 722 creatinine 0.4 white blood count 9.9 hemoglobin 11.2 hematocrit 36.[address] scan of abdomen pelvis was done on 08/06/2019 showed low attenuation but variable density mass in inferior right lobe of the liver measures 4.5 x 4.1 cm mass extends through liver capsule with adjacent perihepatic fluid, impression was metastatic disease versus hematoma versus abscess. New intrahepatic and extrahepatic bile duct dilatation. New metastatic deposit and/or lymph nodes. Largest deposit posterior to the pancreatic head measuring 2.6 x 1.6 cm. Additional new aortocaval and right pelvic lymph nodes. Surgical anastomotic site in the right abdomen. Partial obstruction suspected at the anastomotic site.Patient was referred to Dr. Rodriguez in [place], as per patient she underwent stent placement in common bile duct and liver abscess was drained , now she has percutaneous drainage and Being followed by Dr. Rodriguez and recently underwent follow-up CT scan of abdomen which showed improvement in right hematoma, as per discussion with Dr. Rodriguez, there is no evidence of recurrence of disease and he recommended follow-up from oncology point of view and will monitor and manage hepatic hematoma. Came for follow-up, patient is complaining of mid/lower back pain and also mild off-and-on nausea. Patient takes oxycodone 5 mg when needed. Denies any vomiting denies any melena or hematochezia denies any abdominal pain denies any fever chills but recently found to have jaundice, patient was evaluated by Dr. Rodriguez with CT scan of chest and abdomen on August 18, 2020 which showed innumerable pulmonary nodules, dominant mass in the right upper lobe has increased in size, worsening of left supraclavicular lymphadenopathy, slightly prominent azygoesophageal recess lymph node. There is right retrocrural lymphadenopathy and enlargement of right pericardial lymph nodes. Liver shows prior partial right hepatectomy. Changes suggesting interval embolotherapy. Heterogeneous low-attenuation changes present in the right lateral aspect of the liver which could be due to recurrent neoplasm or postprocedural changes. There is periportal edema., Spleen is enlarged , Patient was asked by Dr. Rodriguez to see us as soon as possible. Patient denies any hemoptysis or hematemesis denies any headaches blurred vision or double vision. But poor appetite Still has biliary drainage, functioning well Medications: Amitriptyline HCl 1 Tablet (of 10 mg) Oral at bedtime, Betaxolol HCl 1 (10 mg) Tablet Oral daily, Cymbalta 1 (60 mg) Capsule Delayed Release Particles Oral daily, D2000 Ultra Strength 1 Capsule (of 50 mcg ) Oral q 7 days, Levothroid 1 (137 mcg) Tablet Oral daily, Ondansetron HCl Tablet Oral, Stool Softener Tablet Oral PRN Allergies: fentaNYL and Morphine Sulfate. Review of Systems: Review of Systems is not available for this patient. Vital Signs: Performed on Aug 26, 2020 09:26 Height - 63.00 in Weight - 124 lbs BSA - 1.58 sq.m BMI - 21.97 Temperature - 97.1 F (LOW) Pulse - 88 /min Respiration - 17 /min BP - 113/82 mm(hg) O2 Sat - 99 % Pain - 6 Performed on Aug 26, 2020 08:28 Height - 63.00 in Weight - 124 lbs (LOW) BSA - 1.58 sq.m BMI - 21.97 Performance Status: 3 - Capable of only limited self-care, confined to bed or chair more than 50% of waking hours. (ECOG) Physical Examination: ENMT - No mouth sores, no thrush, but jaundice And palpable lymphadenopathy in left supraclavicular area, Respiratory - Lungs are clear to auscultation, Cardiovascular - Regular rate and rhythm of heart, Abdomen - Soft, bowel sounds present, biliary drainage functioning fine, Extremities - No visible edema. Lab/Imaging: Most recent lab results are not available for this patient. Impression: 1. Patient with moderately differentiated adenocarcinoma, initially discovered by colonoscopy on 11/30/2016. It was initially thought to be at the rectosigmoid junction, with the biopsy was reported be at 10 cm from the anal verge. Her CT abdomen/pelvis at that time reported no evidence of metastatic involvement, but there was note of a tiny right hepatic cyst. 2. She underwent further management at the [facility] in [place], [place]. Repeat colonoscopy confirmed rectal adenocarcinoma extending from 8-12 cm. By transrectal ultrasound, she appeared to have T3, N1 disease. 3. MRI of the abdomen showed 2 small lesions in the right lobe of the liver, one measuring 7 mm and the other [address] directed needle biopsy showed benign pathology. 4. On 01/29/2017 she underwent diagnostic laparoscopy with excisional biopsy of a suspicious 1 cm right hepatic lobe lesion, biopsy of the 2nd right hepatic lobe lesion, and biopsy of a right diaphragmatic peritoneal lesion. The excised liver lesion showed metastatic adenocarcinoma which was K-catherine mutation positive and MSI stable. The other liver lesion and the peritoneal lesion showed benign pathology. 5. She then started treatment with FOLFOX chemotherapy, cycle 1 beginning on 02/05/2017. 6. She had EGD evidence of gastritis and chronic gastric ulcers. These had not been symptomatic. Her other medical illnesses include: 7. Hyperlipidemia. 8. Hypothyroidism. 9. She has a history of cardiac tachyarrhythmia, presumably supraventricular tachycardia. She has had no problems with it following a cardiac ablation procedure in 2013. 6. She is on CPAP for obstructive sleep apnea. 7. She has a history of ADHD and chronic anxiety, well controlled on medication. As of April 2017 she had completed 6 cycles of chemotherapy. She tolerated it very well. However, her restaging CT scans showed increase in the size of the posterior segment right hepatic low attenuation mass, which had been noted on the previous CT from November 2016. The scans were reviewed with the radiologist and compared to the CT and MRI images from [place]. The lesion appears to correlate with the second mass described on the MRI, and the appearance was suspicious for a metastatic lesion. As she did not appear to be responding to the chemotherapy, she was then referred to Dr. Amaral. On 06/21/2017 she underwent robotic extended low anterior resection with placement of loop ileostomy. Final pathologic staging was T3, N2a. At that time she was noted to have a single capsular metastatic lesion involving the right lateral liver. There was no other obvious metastatic disease noted at surgery. On 07/18/2017 she underwent successful percutaneous hepatic microwave ablation to the metastatic segment 6 lesion.During follow-up, she was found to have recurrence, and she was referred to [facility] [place] patient underwent intraperitoneal therapy followed by biweekly systemic therapy, doesn't remember the name. Plan: Discussed with patient regarding her labs white blood count 16.9 hemoglobin 11.8 hematocrit 35.6 platelets 329,000 CMP normal except bilirubin 5.9 compared to 0.4 on January 21, 2020 sodium 131 glucose 171 AST 70 ALT 51 alk phos 776 compared to normal transaminases previously Clinically, patient is in mild to moderate distress due to lower mid/lower back pain more on the right side not being controlled with as needed oxycodone 5 mg, patient was advised to take 5 to 10 mg p.o. 4 to 6-hour and if no control, may add long-acting narcotics. We will also order CT PET scan to assess the extent of the disease and CEA level if not elevated may consider supraclavicular lymph node biopsy to rule out other pathology and also consider guardant 360 to identify therapeutic mutations and patient return to clinic after CT PET scan and guardant 360 report for further discussion and planning. Patient was advised in case there is a worsening of pain or any fever or chills, she need to call us or go to hospital immediately. Leukocytosis, etiology unclear could be due to infection specially with elevated bilirubin and alk phos and transaminases probably due to the kvng hepatis lymphadenopathy but patient has no fever chills but will consider prophylactic antibiotic with ciprofloxacin Also gave her prescription for narcotics as well as Ativan which she will take for mild nausea or anxiety. Signed By: Arlene Reina M.D. <<Signature on File>>
== END 2020-08-26 07:48 | disposition home or self-care (01) ==
LOC: ONCMED 07:53
PROVIDERS: PCP Nurse Practitioner Family; Visit Provider Internal Medicine Hematology & Oncology
DX: C20 Malignant neoplasm of rectum (principal); C78.7 Secondary malignant neoplasm of liver and intrahepatic bile duct; E78.5 Hyperlipidemia, unspecified; E03.9 Hypothyroidism, unspecified; I47.1 Supraventricular tachycardia; G47.33 Obstructive sleep apnea (adult) (pediatric); F90.9 Attention-deficit hyperactivity disorder, unspecified type; F41.9 Anxiety disorder, unspecified; Z79.899 Other long term (current) drug therapy
CPT/HCPCS: 36591; 80053; 85007; 85027; 99215

== ENCOUNTER 2020-08-29 07:48 | Outpatient (CLI) | payer OTHER, SELFPAY | END 2020-08-29 07:49 | disposition home or self-care (01) | LOC: ONCMED 07:50 | PROVIDERS: PCP Nurse Practitioner Family; Visit Provider Internal Medicine Medical Oncology | DX: C20 Malignant neoplasm of rectum (principal); C78.7 Secondary malignant neoplasm of liver and intrahepatic bile duct | CPT/HCPCS: 36591 ==